=== PATIENT | female | born 1940 | race Caucasian/White ===

== ENCOUNTER 2020-04-14 10:23 | Inpatient (IN) | payer MEDICARE, MEDICAID, SELFPAY ==
[2020-04-14] VITALS (31 sets, daily range): BP systolic 107–231; BP diastolic 54–103; PULSE 59–102; RESP 14–22; TEMP 36.2–36.9; O2SAT 91–100; BMI 18.5
--- NOTE | 2020-04-14 11:03 | XR_ITS ---
WS: [id number] PORTABLE CHEST HISTORY: dyspnea/cough COMPARISON: 11/09/2017 Prior median sternotomy and CABG. Chronic emphysematous changes. Mild interstitial thickening is similar to prior studies. No pneumonia . No pleural effusion or pneumothorax. Cardiac size: Mildly enlarged cardiac silhouette. Mediastinum/Aorta: Mild atherosclerosis aorta. Osteopenia and degenerative changes in the lumbar and thoracic spines. XR/XR chest 1V portable [id number] IMPRESSION: Chronic emphysematous changes with no pneumonia. Prior CABG.
--- NOTE | 2020-04-14 11:04 | CT_ITS ---
WS: [id number] CT ABDOMEN AND PELVIS WITH CONTRAST HISTORY: Abdominal pain. TECHNIQUE: Imaging performed of the abdomen and pelvis with IV contrast. Single phase imaging of the abdomen. Coronal and sagittal reformats are submitted. All CT scans at [facility] use at least one of these dose optimization techniques: automated exposure control; mA and/or kV adjustment per patient size (includes targeted exams where dose is matched to clinical indication); or iterativ e reconstruction. IV CONTRAST: Omnipaque 300; 95 mL IV. Oral contrast: No DLP: 195.52 mGy.cm COMPARISON: None available. Lower thorax: Mild interstitial thickening at the lung bases. Benign granuloma LEFT lung base. Mild e nlargement of the LEFT heart chambers. No hiatal hernia. Liver/biliary system: Normal size with no intrahepatic dilatation. Gallbladder: Normal. No gallstones or wall thickening. No pericholecystic fluid. Pancreas: Marked atrophy of the pancreas. No bile duct dilatation. Spleen: Normal. Adrenal glands: Normal. Right kidney: Moderate atrophy of the RIGHT kidney. Cortical thinning with numerous cysts. There is e xtensive cortical thinning and scarring. The largest cyst maximum diameter of 8.1 cm has peripheral c alcification. No solid enhancing component. Left kidney: Cortical atrophy and scarring especially within the lower pole. No obstruction. Aorta: Extensive atherosclerosis aorta. Patient is status grafting of the abdominal aorta. There is h eavy calcification in the distal graft extending into the iliac arteries. No obstruction of the aorta . Lymphadenopathy: None. Free fluid: None. GI tract: There is extensive fecal retention and constipation. No obstructive pattern is identified. Abdominal wall: Unremarkable abdominal wall. No hernia. Pelvis: Moderately distended urinary bladder. No free fluid in the pelvis. No adenopathy is appreciat ed. Bones: Marked osteopenia. CT/CT abdomen pelvis w con* [id number] IMPRESSION: 1. Severe constipation without obstruction. 2. RIGHT renal cysts with severe cortical thinning and moderate atrophy. 3. Prior abdominal aorta bypass grafting. Bypass graft is intact but there is heavy atherosclerotic plaque. No ischemic changes noted in the GI tract.
--- NOTE | 2020-04-14 11:10 | PC.NURSE ---
Pt requested a bed bustos to void. Pt cleaned with clean catch wipes prior to voiding. Pt placed on bed bustos
[2020-04-14 11:13] LABS: Basophils # 0.1 10^3/uL (0.0-0.1); Basophils % 1.1 %; Eosinophils # 0.2 10^3/uL (0.0-0.8); Eosinophils % 1.7 %; Hematocrit 46.5 % (37.0-47.0); Lymphocytes # 1.1 10^3/uL (0.8-4.8); Lymphocytes % 12.2 %; Mean Corpuscular HGB Conc 32.3 g/dL (30.0-36.0); Mean Corpuscular Hemoglobin 29.6 pg (28.0-34.0); Mean Corpuscular Volume 91.7 fL (81-99); Mean Platelet Volume 9.7 fL (7.4-10.4); Monocytes # 0.8 10^3/uL (0.2-0.9); Monocytes % 8.8 %; Neutrophils # 6.83 10^3/uL (1.8-7.7); Neutrophils % 75.9 %; Nucleated Red Blood Cells % 0 %; Platelet Count 252 10^3/cmm (130-400); Red Blood Count 5.07 10^6/uL (4.1-5.3); Red Cell Distribution Width 13.2 % (12.1-15.1)
[2020-04-14] MEDS: morphine 4 mg/mL SDV 1 mL IVP (11:16)
[2020-04-14] MEDS: ondansetron 2 mg/ML SDV 2 mL 4 MG IVP ×2 (11:16→19:08)
[2020-04-14 11:22] LABS: Alanine Aminotransferase 16 U/L (0-33); Albumin Level 4.6 g/dL (3.5-5.2); Alkaline Phosphatase 57 IU/L (35-105); Anion Gap 16.7 (5-19); Aspartate Amino Transferase 26 U/L (0-32); Blood Urea Nitrogen 18 mg/dL (8-23); Calcium 9.4 mg/dL (8.5-10.5); Carbon Dioxide 27 mmol/L (22-29); Chloride 98 mmol/L (98-107); Glucose 159 mg/dL (65-115); Lipase 37 U/L (13-60); Osmolality Calculated 291 mOsm/kg (285-295); Potassium 3.7 mmol/L (3.5-5.1); Sodium 138 mmol/L (136-145); Total Bilirubin 0.6 mg/dL (0.15-1.2); Total Protein 7.6 g/dL (6.6-8.7)
--- NOTE | 2020-04-14 11:22 | PC.NURSE ---
After pain medication administration, pt saturations dropped to 88% on room air. Pt placed on 2LNC for support.
--- NOTE | 2020-04-14 11:33 | ECG_ITS ---
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1940 Requested By: Justo Hurtado Order Number: [id number] Reading MD: SHARLENE RICARDO Measurements Intervals [place] Rate: 76 P: PA: QRS: -46 QRSD: 145 T: 170 QT: 406 QTc: 457 Interpretive Statements Sinus rhythm with PACs LEFT AXIS DEVIATION [QRS AXIS < -30] LEFT BUNDLE BRANCH BLOCK [120+ ms QRS DURATION, 80+ ms Q/S IN V1/V2, 85+ ms R IN I/aVL/V5/V6] Compared to ECG 11/09/2017 18:29:57 Left bundle-branch block now present T-wave abnormality no longer present Possible ischemia no longer present Electronically Signed On 04-15-2020 15:23:40 BANJO REPAIRER by SHARLENE RICARDO [id number]
--- NOTE | 2020-04-14 11:33 | PC.NURSE ---
XR performed at bedside.
--- NOTE | 2020-04-14 11:44 | ED_ITS ---
HPI - Chest Pain General: Chief Complaint: Chest Pain Stated Complaint: ABDOMINAL PAIN / CHEST PAIN Time Seen by Provider: 04/14/20 10:25 History of Present Illness: HPI narrative: 79-year-old female presents emergency room complaining of abdominal pain epigastric radiating up into the chest at times it began this morning with dizziness. She has had some bilious- like vomiting but no blood or coffee-ground emesis. She denies fever sweats or chills. She denies any diarrhea she denies any dysuria urgency or frequency MD complaint: other (Abdominal pain) Pertinent past history: coronary artery disease Onset (ago): hour(s) Timing of current episode: constant Prior episodes: Yes Onset: during rest Pain location: epigastric Pain radiation: other (Chest) Severity: severe Quality: tightness and sharp Relieving factors: nothing Exacerbating factors: nothing Associated symptoms: Reports nausea and vomiting; Deny abdominal pain, diaphoresis, dyspnea, fever(s), leg edema, palpitations, sense of impending doom or syncope Treatment prior to arrival: none Review of Systems Const: Denies: fever(s) or diaphoresis ENMT: Denies: throat pain, ear or mastoid pain, nasal discharge or nasal congestion Card: Denies: palpitations or syncope Resp: Denies: dyspnea GI: Reports: nausea and vomiting; Denies: abdominal pain : Denies: flank pain, difficulty voiding, dysuria, urinary frequency or urinary urgency Skin/Breast: Denies: rash or pruritus [facility] ED PFSH: Medical History Diabetes mellitus Hypertension Hypothyroidism Surgical History History of aortic valvuloplasty History of appendectomy History of coronary artery bypass graft x 2 History of hysterectomy Physical Exam Const: COMMON NORMALS: no acute distress GENERAL APPEARANCE: cooperative and comfortable ORIENTATION/CONSCIOUSNESS: Yes awake, Yes oriented to person, Yes oriented to place and Yes oriented to time HENMT: COMMON NORMALS: normocephalic, atraumatic and hearing grossly normal bilaterally HEAD & SCALP: normocephalic and atraumatic Neck/C-Spine: COMMON NORMALS: no JVD Resp: COMMON NORMALS: normal respiratory effort, No retractions, No use of accessory muscles and clear to auscultation bilaterally AUSCULTATION: clear to auscultation bilaterally Cardio: COMMON NORMALS: no JVD, regular rate, regular rhythm and No murmurs present (Cardio) RATE: regular rate RHYTHM: regular rhythm GI: COMMON NORMALS: Soft to palpation and No hepatosplenomegaly present AUSCULTATION: Yes normoactive bowel sounds PALPATION: Yes Soft to palpation, Yes Tenderness to palpation present (GI) (Epigastrium), No Guarding due to palpation present (GI) and Yes No hepatosplenomegaly present Extremity: COMMON NORMALS: normal to inspection, capillary refill normal, no clubbing, cyanosis or edema, no calf tenderness and no pedal edema Neuro: SENSORIUM/ORIENTATION: Yes oriented to person, Yes oriented to place and Yes oriented to time Skin: COMMON NORMALS: no rashes or lesions noted GENERAL SKIN EXAM: no rashes or lesions noted Course Vital Signs: Vital signs: Vital Signs Temperature 97.5 F L 04/14/20 10:34 Pulse Rate 62 04/14/20 15:05 Respiratory Rate 18 04/14/20 15:05 Blood Pressure 176/61 04/14/20 15:05 Pulse Oximetry 95 04/14/20 15:05 MDM - Chest Pain MDM Narrative: Medical decision making narrative: Patient was about to be discharged her troponin second troponin came back very late and it is has a positive delta of 7. She still has reproducible pain in the epigastrium. She has a [place] bundle branch block which is new compared to a little over 2 years ago[address] Lovett he has a low level suspicion and wants us to do an echo will admit for the 6-hour troponin and further evaluation. She has been given Rocephin for her bladder infection she probably would also benefit from laxatives for her constipation. Lab Data: Labs: Lab Results 04/14/20 04/14/20 04/14/20 Range/Units 10:45 10:45 10:45 WBC 9.0 (4.0-10.0) 10^3/ uL RBC 5.07 (4.1-5.3) 10^6/u L Hgb 15.0 (11.5-15.3) g/dL Hct 46.5 (37.0-47.0) % MCV 91.7 (81-99) fL MCH 29.6 (28.0-34.0) pg MCHC 32.3 (30.0-36.0) g/dL RDW 13.2 (12.1-15.1) % Plt Count 252 (130-400) 10^3/c mm MPV 9.7 (7.4-10.4) fL Neut % (Auto) 75.9 % Lymph % (Auto) 12.2 % [place] % (Auto) 8.8 % Eos % (Auto) 1.7 % Baso % (Auto) 1.1 % Neut # (Auto) 6.83 (1.8-7.7) 10^3/u L Lymph # (Auto) 1.1 (0.8-4.8) 10^3/u L [place] # (Auto) 0.8 (0.2-0.9) 10^3/u L Eos # (Auto) 0.2 (0.0-0.8) 10^3/u L Baso # (Auto) 0.1 (0.0-0.1) 10^3/u L Nucleated RBC % (a uto) 0 % Nucleated RBCs # 0.0 /100WBC Sodium 138 (136-145) mmol/L Potassium 3.7 (3.5-5.1) mmol/L Chloride 98 (98-107) mmol/L Carbon Dioxide 27 (22-29) mmol/L Anion Gap 16.7 (5-19) BUN 18 (8-23) mg/dL Creatinine 1.0 H (0.5-0.9) mg/dL GFR Calculation Not Reportable Glucose 159 H (65-115) mg/dL Calculated Osmolal ity 291 (285-295) mOsm/k g Calcium 9.4 (8.5-10.5) mg/dL Total Bilirubin 0.6 (0.15-1.2) mg/dL AST 26 (0-32) U/L ALT 16 (0-33) U/L Alkaline Phosphata se 57 (35-105) IU/L Troponin T Baselin e 20 H (0-10) ng/L Troponin T 120 Min bibiana (0-10) ng/L Delta Troponin T (0-10) ABS# Total Protein 7.6 (6.6-8.7) g/dL Albumin 4.6 (3.5-5.2) g/dL Globulin 3.0 (1.3-4.6) g/dL Lipase 37 (13-60) U/L Urine Color (Yellow) Urine Appearance (CLEAR) Urine pH (5-7) Ur Specific Gravit y (1.005-1.030) Urine Protein (Negative) Urine Glucose (UA) (Normal) Urine Ketones (Negative) Urine Blood (Negative) Urine Nitrate (Negative) Urine Bilirubin (Negative) Urine Urobilinogen (Negative) mg/dL Ur Leukocyte Samia ase (Negative) Urine RBC (0-2) /hpf Urine WBC (0-5) /hpf Ur Squamous Epith Cells (0-5) /hpf Amorphous Sediment Urine Bacteria (NONE) /hpf 04/14/20 04/14/20 Range/Units 11:20 14:07 WBC (4.0-10.0) 10^3/ uL RBC (4.1-5.3) 10^6/u L Hgb (11.5-15.3) g/dL Hct (37.0-47.0) % MCV (81-99) fL MCH (28.0-34.0) pg MCHC (30.0-36.0) g/dL RDW (12.1-15.1) % Plt Count (130-400) 10^3/c mm MPV (7.4-10.4) fL Neut % (Auto) % Lymph % (Auto) % [place] % (Auto) % Eos % (Auto) % Baso % (Auto) % Neut # (Auto) (1.8-7.7) 10^3/u L Lymph # (Auto) (0.8-4.8) 10^3/u L [place] # (Auto) (0.2-0.9) 10^3/u L Eos # (Auto) (0.0-0.8) 10^3/u L Baso # (Auto) (0.0-0.1) 10^3/u L Nucleated RBC % (a uto) % Nucleated RBCs # /100WBC Sodium (136-145) mmol/L Potassium (3.5-5.1) mmol/L Chloride (98-107) mmol/L Carbon Dioxide (22-29) mmol/L Anion Gap (5-19) BUN (8-23) mg/dL Creatinine (0.5-0.9) mg/dL GFR Calculation Glucose (65-115) mg/dL Calculated Osmolal ity (285-295) mOsm/k g Calcium (8.5-10.5) mg/dL Total Bilirubin (0.15-1.2) mg/dL AST (0-32) U/L ALT (0-33) U/L Alkaline Phosphata se (35-105) IU/L Troponin T Baselin e (0-10) ng/L Troponin T 120 Min bibiana 27.37 H (0-10) ng/L Delta Troponin T 7.37 (0-10) ABS# Total Protein (6.6-8.7) g/dL Albumin (3.5-5.2) g/dL Globulin (1.3-4.6) g/dL Lipase (13-60) U/L Urine Color Yellow (Yellow) Urine Appearance Cloudy (CLEAR) Urine pH 7 (5-7) Ur Specific Gravit y 1.010 (1.005-1.030) Urine Protein Trace (Negative) Urine Glucose (UA) Norm (Normal) Urine Ketones 1+ H (Negative) Urine Blood Neg (Negative) Urine Nitrate Negative (Negative) Urine Bilirubin Neg (Negative) Urine Urobilinogen Neg (Negative) mg/dL Ur Leukocyte Samia ase Negative (Negative) Urine RBC None (0-2) /hpf Urine WBC 15-25 H (0-5) /hpf Ur Squamous Epith Cells 0-4 H (0-5) /hpf Amorphous Sediment Not Reportable Urine Bacteria 4+ H (NONE) /hpf Discharge Plan Discharge Patient Disposition: Placed in Observation Clinical Impression: Elevated troponin, Constipation, Cystitis, Diabetes mellitus, Hypertension, Hypothyroidism Coding Level of Care Code ED Installer for Chg Fwd Exam Comprehensive
--- NOTE | 2020-04-14 12:08 | PC.NURSE ---
Report given to MARY Hanna
[2020-04-14 12:24] LABS: Add Urine Microscopic? YES; Bilirubin Urine Neg (Negative); Blood Urine Neg (Negative); Glucose Urine UA Norm (Normal); Ketones Urine 1+ (Negative); Leukocyte Esterase Urine Negative (Negative); Nitrate Urine Negative (Negative); Protein Urine Trace (Negative); Urine Appearance Cloudy (CLEAR); Urine Color Yellow (Yellow); Urobilinogen Urine Neg (Negative); pH Urine 7 (5-7)
[2020-04-14 12:25] LABS: Squamous Epithelial Cell Urine 0-4 /hpf (0-5); WBC Urine 15-25 /hpf (0-5)
[2020-04-14 12:26] LABS: Add Urine Culture? Yes; Bacteria Urine 4+ /hpf
[2020-04-14] MEDS: iodixanol 320 mg/mL 100mL Btl IV (12:43)
[2020-04-14 12:56] LABS: Troponin(5th) Baseline 20 ng/L (0-10)
--- NOTE | 2020-04-14 13:33 | ECG_ITS ---
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1940 Requested By: Justo Hurtado Order Number: [id number] Reading MD: SHARLENE RICARDO Measurements Intervals [place] Rate: 65 P: 63 MI: 226 QRS: -16 QRSD: 146 T: 143 QT: 483 QTc: 503 Interpretive Statements SINUS RHYTHM WITH FIRST DEGREE AV BLOCK WITH OCCASIONAL SUPRAVENTRICULAR PREMATURE COMPLEXES LEFT BUNDLE BRANCH BLOCK [120+ ms QRS DURATION, 80+ ms Q/S IN V1/V2, 85+ ms R IN I/aVL/V5/V6] Compared to ECG 04/14/2020 10:30:11 First degree AV block now present Atrial fibrillation no longer present Left-axis deviation no longer present Electronically Signed On 04-15-2020 15:31:41 METAL MOLDER by SHARLENE RICARDO [id number]
[2020-04-14] MEDS: cefTRIAXone 1,000 mg SDV 1000 MG IM (13:47)
[2020-04-14] MEDS: hyDRALAzine 20 mg/mL INJ 1 mL 10 MG IVP (13:47)
[2020-04-14 14:33] LABS: Troponin 5 2HR 27.37 ng/L (0-10); Troponin 5 2HR Delta 7.37 ABS# (0-10)
[2020-04-14] MEDS: morphine 4 mg/mL SDV 1 mL 2 MG IVP ×2 (15:24→17:36)
[2020-04-14] MEDS: nitroglycerin 1 gm/inch oint Pkt 1 INCH TOPICAL (15:26)
--- NOTE | 2020-04-14 16:23 | PM.HP ---
Providers/Chief Complaint Admitting Physician: Reina Yi MD Primary Care Provider: Dr. Hines Chief Complaint: ABDOMINAL PAIN / CHEST PAIN History of Present Illness Shanda Mackey is a 79 year old female who presented to the emergency room not feeling well for several days. She was complaining of pain in her abdomen. It is in the upper part of the abdomen and epigastric region. She is not really able to describe it but the pain is severe. She reports a bowel movement yesterday states that it was not hard that she has been having her normal bowel movement pattern. In addition to the upper stomach pain she complains of chest pain. Pain she describes as a burning that is primarily on the right side. The chest pain and the abdominal pain are both worse with exertion and get better with rest in her recliner. Mrs. Mackey has a history of coronary artery disease with 2 prior bypass surgeries. Last time that she had invasive evaluation they were unable to do much due to access. She has been told that she is not a candidate for invasive evaluation or further surgical repair and should be medically managed from a cardiac standpoint. EKG appeared to show new left bundle branch block. Troponin was elevated patient has not had much oral intake the last day or so. Does not relate any association of oral intake to her pain. She has had some relief with nitroglycerin. Pain is also worse when her blood pressure is higher so she has had a bit of relief with clonidine. During my evaluation she is moaning frequently. CT of the abdomen and pelvis done in the emergency room Review of Systems Const: Reports: change in appetite; Denies: fever(s) or chills ENMT: Reports: dry mouth; Denies: throat pain, odynophagia or nasal congestion Card: Reports: chest pain, palpitations and dyspnea on exertion; Denies: edema Resp: Reports: dyspnea; Denies: productive cough or non-productive cough GI: Reports: abdominal pain and nausea; Denies: vomiting, diarrhea or constipation : Reports: dribbling; Denies: difficulty voiding or urinary frequency Musc: Reports: back pain and extremity pain Skin/Breast: Denies: rash or pruritus Neuro: Reports: dizziness; Denies: headache(s), numbness in extremities or weakness in extremities Psych: Reports: anxiety, paranoia and memory loss; Denies: depression Jason/Lymph: Denies: easy bruising or easy bleeding Medications/Allergies Home Medications Medication Instructions Recorded Confirmed Last Taken Type aspirin [Aspir-81] 81 mg PO DAILY 04/14/20 04/14/20 04/14/20 History clonidine HCl 0.2 mg PO BID 04/14/20 04/14/20 Unknown History hydrochlorothiazide 12.5 mg PO DAILY 04/14/20 04/14/20 Unknown History levothyroxine 125 mcg PO DAILY 04/14/20 04/14/20 Unknown History memantine 5 mg PO DAILY 04/14/20 04/14/20 Unknown History nitroglycerin 0.2 mg SUBLINGUAL Q5M PRN 04/14/20 04/14/20 04/14/20 History sitagliptin [Januvia] 50 mg PO DAILY 04/14/20 04/14/20 Unknown History Allergies Allergy/AdvReac Type Severity Reaction Status Date / Time acetaminophen [From Percocet] Allergy Unknown Verified 04/14/20 14:00 adalimumab [From Humira] Allergy Unknown Verified 04/14/20 14:00 amlodipine [From Norvasc] Allergy Unknown Verified 04/14/20 14:00 amoxicillin Allergy Unknown Verified 04/14/20 14:00 bupropion [From Wellbutrin] Allergy Unknown Verified 04/14/20 14:00 carvedilol [From Coreg] Allergy Unknown Verified 04/14/20 14:51 ciprofloxacin [From Cipro] Allergy Unknown Verified 04/14/20 14:00 codeine Allergy Unknown Verified 04/14/20 14:51 diltiazem Allergy Unknown Verified 04/14/20 14:00 diphenhydramine Allergy Unknown Verified 04/14/20 14:00 [From Benadryl] enalaprilat [From Vasotec] Allergy Unknown Verified 04/14/20 14:00 etanercept [From Enbrel] Allergy Unknown Verified 04/14/20 14:00 hydrocodone Allergy Unknown Verified 04/14/20 14:00 ibuprofen Allergy Unknown Verified 04/14/20 14:00 isosorbide [From Imdur] Allergy Unknown Verified 04/14/20 14:00 lovastatin Allergy Unknown Verified 04/14/20 14:00 meperidine [From Demerol] Allergy Unknown Verified 04/14/20 14:51 metoprolol [From Toprol XL] Allergy Unknown Verified 04/14/20 14:00 mibefradil [From Posicor] Allergy Unknown Verified 04/14/20 14:00 niacin Allergy ADR-Headach Verified 04/14/20 14:00 e nitrous oxide Allergy Unknown Verified 04/14/20 14:00 oxycodone [From Percocet] Allergy Unknown Verified 04/14/20 14:00 prednisone Allergy Unknown Verified 04/14/20 14:00 propoxyphene [From Darvon] Allergy Unknown Verified 04/14/20 14:51 sumatriptan [From Imitrex] Allergy Unknown Verified 04/14/20 14:00 tramadol [From Ultram] Allergy Unknown Verified 04/14/20 14:00 trospium Allergy ADR-Hyperte Verified 04/14/20 14:00 nsion zolmitriptan [From Zomig] Allergy Unknown Verified 04/14/20 14:00 ERYTHROMYCIN Allergy Unknown Uncoded 04/14/20 14:00 TROSPIUM CHLORIDE Allergy Unknown Uncoded 04/14/20 14:00 PFSH Acute PFSH: Medical History (Updated 04/15/20 @ 00:06 by Reina Yi MD) Alzheimer disease CAD (coronary artery disease) CHF (congestive heart failure) Diabetes mellitus Hyperlipidemia Hypertension Hypothyroidism Schizophrenia Surgical History (Updated 04/15/20 @ 00:04 by Reina Yi MD) History of aortic valvuloplasty History of appendectomy History of coronary artery bypass graft x 2 History of hysterectomy Status post aortic bifurcation bypass graft Family History Sister CAD (coronary artery disease) Mother CAD (coronary artery disease) Social History Smoking and tobacco status: former smoker Alcohol intake: never Substance/Drug Use: never Household members: children Vitals/I&O/Wt Last Vital Signs Temp 97.5 F L 04/14/20 10:34 Pulse 62 04/14/20 15:05 Resp 18 04/14/20 15:05 BP 176/61 04/14/20 15:05 Pulse Ox 95 04/14/20 15:05 Weight last 48 hrs Weight 44.452 kg Physical Exam Const: OTHER: Alert, oriented to person and place but not able to provide detailed answers to questions, thin build, looks uncomfortable HENMT: OTHER: Bitemporal wasting, dry mucous membranes Eye: OTHER: Extra ocular movements are intact Neck/C-Spine: OTHER: Supple Chest: OTHER: Prior sternal incision noted Resp: OTHER: Clear to auscultation bilaterally, no rales, rhonchi or wheezes Cardio: OTHER: Regular rate and rhythm, no JVD, apical impulse slightly left of midline, 2+ radial pulses, 1+ pedal pulses GI: OTHER: Abdomen soft, tender in the epigastric region primarily, positive bowel sounds, mild tenderness in the bladder region : OTHER: Normal external genitalia Extremity: NARRATIVE EXTREMITY EXAM: No pitting edema, prior vein graft scars noted Neuro: OTHER: Speech clear, handgrip equal, moves both legs, face symmetric Psych: OTHER: Quite anxious and uncomfortable, moans a lot during exam but does pause to answer questions Skin: OTHER: Dry skin with decreased turgor Data : 04/14/20 10:45 04/14/20 10:45 A&P Assessment and plan (1) Abdominal pain: Status: Acute Qualifiers: Abdominal location: epigastric Qualified Code(s): R10.13 - Epigastric pain (2) Chest pain: Status: Acute Qualifiers: Chest pain type: precordial pain Qualified Code(s): R07.2 - Precordial pain (3) Elevated troponin: Status: Acute (4) Constipation: Status: Acute Qualifiers: Constipation type: unspecified constipation type Qualified Code(s): K59.00 - Constipation, unspecified (5) CAD (coronary artery disease): Status: Chronic Qualifiers: Coronary Disease-Associated Artery/Lesion type: bypass graft Associated angina: without angina [place] vs. transplanted heart: nikolai heart Qualified Code(s): I25.810 - Atherosclerosis of coronary artery bypass graft(s) without angina pectoris (6) CHF (congestive heart failure): Status: Chronic Qualifiers: Heart failure type: unspecified Heart failure chronicity: chronic Qualified Code(s): I50.9 - Heart failure, unspecified (7) Hypertension: Status: Chronic Qualifiers: Hypertension type: essential hypertension Qualified Code(s): I10 - Essential (primary) hypertension (8) Hypothyroidism: Status: Chronic Qualifiers: Hypothyroidism type: acquired Qualified Code(s): E03.9 - Hypothyroidism, unspecified (9) Diabetes mellitus: Status: Chronic Qualifiers: Diabetes mellitus type: type 2 Diabetes mellitus mcfp insulin use: without mcfp use Diabetes mellitus complication status: with circulatory complication Diabetes mellitus complication detail: with other circulatory complications Qualified Code(s): E11.59 - Type 2 diabetes mellitus with other circulatory complications (10) Hyperlipidemia: Status: Chronic Qualifiers: Hyperlipidemia type: unspecified Qualified Code(s): E78.5 - Hyperlipidemia, unspecified (11) Alzheimer disease: Status: Chronic Qualifiers: Alzheimer's disease onset: unspecified onset Dementia behavioral disturbance: without behavioral disturbance Qualified Code(s): G30.9 - Alzheimer's disease, unspecified; F02.80 - Dementia in other diseases classified elsewhere without behavioral disturbance (12) Schizophrenia: Status: Chronic Qualifiers: Schizophrenia type: unspecified Qualified Code(s): F20.9 - Schizophrenia, unspecified Additional A&P Information Abnormal urinalysis without reported urinary symptoms, likely contamination with epithelial cells noted, status post 1 dose of Rocephin in the emergency room Observation admission for now Continue serial cardiac enzymes According to the daughter for medical management only We will continue aspirin, allergy to statin, allergy to beta-blockade Continue clonidine and as needed hydralazine for blood pressure, options are extremely limited by reported allergy list Currently hold HCTZ secondary to degree of constipation Low volume IV fluids tonight Check TSH, continue levothyroxine Continue home Namenda Hold Januvia presently, sliding scale insulin if needed Lipase was checked and was normal Pain control Laxative therapy PPI Carafate Supportive care otherwise Patient does not wish to have chest compressions but otherwise would want resuscitative efforts at least in the short-term Attestations Medical Necessity Statement*: Currently anticipated stay less than 2 midnights in a patient presenting with abdominal pain and chest pain that has been difficult to control. She has a history of coronary artery disease for medical management only. Has not been able to get relief of her symptoms thus far. Plans are as indicated. 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 transplanted heart: nikolai heart CHF (congestive heart failure) I50.9 Heart failure type: unspecified Heart failure chronicity: chronic Hypertension I10 Hypertension type: essential hypertension Hypothyroidism E03.9 Hypothyroidism type: acquired Diabetes mellitus E11.59 Diabetes mellitus type: type 2 Diabetes mellitus continuous churn buttermaker insulin use: without continuous churn buttermaker use Diabetes mellitus complication status: with circulatory complication Diabetes mellitus complication detail: with other circulatory complications Hyperlipidemia E78.5 Hyperlipidemia type: unspecified Alzheimer disease G30.9; F02.80 Alzheimer's disease onset: unspecified onset Dementia behavioral disturbance: without behavioral disturbance Schizophrenia F20.9 Schizophrenia type: unspecified
--- NOTE | 2020-04-14 16:28 | PC.NURSE ---
report given to kamala leal
--- NOTE | 2020-04-14 17:25 | PC.NURSE ---
Patient arrived to unit at 1710 with complaints of epigastric area pain and nausea.
[2020-04-14] MEDS: enoxaparin 40 mg/0.4 mL Syringe SUBCUT (17:31)
[2020-04-14] MEDS: cloNIDine 0.1 mg Tablet PO (17:31)
--- NOTE | 2020-04-14 17:33 | ECG_ITS ---
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[id number] Requested By: Justo Hurtado Order Number: [id number] Reading MD: SHARLENE RICARDO Measurements Intervals [place] Rate: 76 P: RI: QRS: -56 QRSD: 154 T: 136 QT: 451 QTc: 509 Interpretive Statements ATRIAL FIBRILLATION WITH ABERRANT CONDUCTION OR VENTRICULAR PREMATURE COMPLEXES MARKED LEFT AXIS DEVIATION [QRS AXIS < -30] LEFT BUNDLE BRANCH BLOCK [120+ ms QRS DURATION, 80+ ms Q/S IN V1/V2, 85+ ms R IN I/aVL/V5/V6] Compared to ECG 04/14/2020 13:59:24 Ventricular premature complex(es) now present Aberrant conduction of supraventricular beat(s) now present Left-axis deviation now present Sinus rhythm no longer present First degree AV block no longer present Electronically Signed On 04-15-2020 15:30:58 INFANTRY SENIOR SERGEANT by SHARLENE RICARDO [id number]
[2020-04-14] MEDS: pantoprazole 40 mg SDV IVP (17:34)
[2020-04-14] MEDS: docusate sodium 100 mg Capsule PO (18:02)
[2020-04-14] MEDS: sennosides 8.6 mg Tablet 17.2 MG PO (18:02)
[2020-04-14 18:19] LABS: Troponin 5 6HR 57.81 ng/L (0-10)
[2020-04-14 18:22] LABS: Troponin 5 6HR Delta 37.81 ng/L (0-12)
--- NOTE | 2020-04-14 19:36 | PC.NURSE ---
Received report from MARY Royal. Patient resting in bed c/o nausea at this time. Medication administered as ordered for her nausea. Assessment completed as documented. Instructed patient on use of morphine and zofran. Patient verbalized understanding however will need reinforcement due to history of Alzheimer's.
--- NOTE | 2020-04-14 20:46 | PM.CONSULT ---
Providers/Reason For Consult Consulting Physican/Specialty*: Cardiology Reason for Consult*: Abdominal pain, abnormal EKG Attending Physician: Reina Yi MD History of Present Illness History of Present Illness Shanda Mackey is a 79 year old female past medical history significant for possible CABG, aortic surgery, please note that patient is not a good historian and I do not have documentation. Patient presented with abdominal pain which is very tender to touch. Cardiac markers were slightly elevated from the normal without significant increase in delta troponin. Interim EKG showed left bundle branch block in the absence of troponin bump appear to be old. I have been asked by Dr. Bedoya to assist in her care. When I spoke to the patient he denies any chest pain at rest or upon exertion. She is not sure whether she had bypass or any valvular problem for which her chest was open. We will ask for records for that. She gives me history of abdominal pain going on for past few weeks worse occasionally with food but not to the extent that it is very tender to touch. Review of Systems Const: Denies: fever(s) or diaphoresis ENMT: Denies: throat pain, ear or mastoid pain, nasal discharge or nasal congestion Card: Denies: palpitations or syncope Resp: Denies: dyspnea GI: Reports: nausea and vomiting; Denies: abdominal pain : Denies: flank pain, difficulty voiding, dysuria, urinary frequency or urinary urgency Skin/Breast: Denies: rash or pruritus Meds/Allergies Home Medications and Allergies Home Medications Medication Instructions Recorded Confirmed Last Taken Type aspirin [Aspir-81] 81 mg PO DAILY 04/14/20 04/14/20 04/14/20 History clonidine HCl 0.2 mg PO BID 04/14/20 04/14/20 Unknown History hydrochlorothiazide 12.5 mg PO DAILY 04/14/20 04/14/20 Unknown History levothyroxine 125 mcg PO DAILY 04/14/20 04/14/20 Unknown History memantine 5 mg PO DAILY 04/14/20 04/14/20 Unknown History nitroglycerin 0.2 mg SUBLINGUAL Q5M PRN 04/14/20 04/14/20 04/14/20 History sitagliptin [Januvia] 50 mg PO DAILY 04/14/20 04/14/20 Unknown History Allergies Allergy/AdvReac Type Severity Reaction Status Date / Time acetaminophen [From Percocet] Allergy Unknown Verified 04/14/20 14:00 adalimumab [From Humira] Allergy Unknown Verified 04/14/20 14:00 amlodipine [From Norvasc] Allergy Unknown Verified 04/14/20 14:00 amoxicillin Allergy Unknown Verified 04/14/20 14:00 bupropion [From Wellbutrin] Allergy Unknown Verified 04/14/20 14:00 carvedilol [From Coreg] Allergy Unknown Verified 04/14/20 14:51 ciprofloxacin [From Cipro] Allergy Unknown Verified 04/14/20 14:00 codeine Allergy Unknown Verified 04/14/20 14:51 diltiazem Allergy Unknown Verified 04/14/20 14:00 diphenhydramine Allergy Unknown Verified 04/14/20 14:00 [From Benadryl] enalaprilat [From Vasotec] Allergy Unknown Verified 04/14/20 14:00 etanercept [From Enbrel] Allergy Unknown Verified 04/14/20 14:00 hydrocodone Allergy Unknown Verified 04/14/20 14:00 ibuprofen Allergy Unknown Verified 04/14/20 14:00 isosorbide [From Imdur] Allergy Unknown Verified 04/14/20 14:00 lovastatin Allergy Unknown Verified 04/14/20 14:00 meperidine [From Demerol] Allergy Unknown Verified 04/14/20 14:51 metoprolol [From Toprol XL] Allergy Unknown Verified 04/14/20 14:00 mibefradil [From Posicor] Allergy Unknown Verified 04/14/20 14:00 niacin Allergy ADR-Headach Verified 04/14/20 14:00 e nitrous oxide Allergy Unknown Verified 04/14/20 14:00 oxycodone [From Percocet] Allergy Unknown Verified 04/14/20 14:00 prednisone Allergy Unknown Verified 04/14/20 14:00 propoxyphene [From Darvon] Allergy Unknown Verified 04/14/20 14:51 sumatriptan [From Imitrex] Allergy Unknown Verified 04/14/20 14:00 tramadol [From Ultram] Allergy Unknown Verified 04/14/20 14:00 trospium Allergy ADR-Hyperte Verified 04/14/20 14:00 nsion zolmitriptan [From Zomig] Allergy Unknown Verified 04/14/20 14:00 ERYTHROMYCIN Allergy Unknown Uncoded 04/14/20 14:00 TROSPIUM CHLORIDE Allergy Unknown Uncoded 04/14/20 14:00 Current Medications Current Medications Generic Name Dose Route Start Last Admin Trade Name Freq PRN Reason Stop Dose Admin Docusate Sodium 100 mg 04/14/20 18:00 04/14/20 18:02 Docusate Sodium 100 Mg Capsule PO 100 mg BID RENATO Administration Ondansetron HCl 4 mg 04/14/20 16:58 04/14/20 19:08 Ondansetron 2 Mg/Ml Sdv 2 Ml IVP 4 mg Q8H PRN Administration vomiting, or N/V if npo Pantoprazole Sodium 40 mg 04/14/20 17:15 04/14/20 17:34 Pantoprazole 40 Mg Sdv IVP 40 mg Q24H RENATO Administration Senna 17.2 mg 04/14/20 18:00 04/14/20 18:02 Sennosides 8.6 Mg Tablet PO 17.2 mg BID RENATO Administration PFSH Acute PFSH: Medical History (Updated 04/15/20 @ 00:06 by Reina Yi MD) Alzheimer disease CAD (coronary artery disease) CHF (congestive heart failure) Diabetes mellitus Hyperlipidemia Hypertension Hypothyroidism Schizophrenia Surgical History (Updated 04/15/20 @ 00:04 by Reina Yi MD) History of aortic valvuloplasty History of appendectomy History of coronary artery bypass graft x 2 History of hysterectomy Status post aortic bifurcation bypass graft Family History Sister CAD (coronary artery disease) Mother CAD (coronary artery disease) Social History Smoking and tobacco status: former smoker Alcohol intake: never Substance/Drug Use: never Household members: children Vitals/I&O/Wt Last Vital Signs Temp 97.2 F L 04/14/20 17:30 Pulse 95 04/14/20 20:00 Resp 17 04/14/20 20:00 BP 129/83 04/14/20 20:00 Pulse Ox 95 04/14/20 20:00 Weight last 48 hrs Weight 0 oz Weight 98 lb Physical Exam Narrative: EXAM NARRATIVE: GENERAL: Patient is alert, awake and oriented x3. Mild to moderately distressed with abdominal pain NECK: No jugular vein distension. HEENT: No cyanosis. No icterus. No pallor. HEART: Regular S1 and S2. No murmur, rub or gallop. LUNGS: Clear to auscultate bilaterally. ABDOMEN: Soft, tender and nondistended. guarding, no rebound or tenderness. CENTRAL NERVOUS SYSTEM: Grossly nonfocal. A&P Assessment and plan (1) CHF (congestive heart failure): Appeared well compensated. No need of diuretics. Status: Chronic Qualifiers: Heart failure chronicity: chronic Heart failure type: unspecified Qualified Code(s): I50.9 - Heart failure, unspecified (2) CAD (coronary artery disease): Appear to be stable coronary artery disease bueno. Interim change in left bundle branch block could be old in the absence of significant bump of cardiac markers. Recommend echocardiogram to assess LV function. Status: Chronic Qualifiers: Associated angina: without angina Coronary Disease-Associated Artery/Lesion type: bypass graft (3) Hypertension: Well-controlled. Status: Chronic (4) Abdominal pain: Abdominal pain is her main etiology and concern for coming to the hospital. Treat as per medicine Status: Acute (5) Elevated troponin: Appear to be nonspecific at the moment. We will continue to monitor Status: Acute Coding Level of Care Code New Pt Acute Tower Hoist Operator for g Fwd Patient Type New History Expanded Problem Focused Exam Expanded Problem Focused Medical Decision Making Moderate Complexity Diagnoses CHF (congestive heart failure) I50.9 Heart failure chronicity: chronic Heart failure type: unspecified CAD (coronary artery disease) I25.10 Associated angina: without angina Coronary Disease-Associated Artery/Lesion type: bypass graft Hypertension I10 Abdominal pain R10.9 Elevated troponin R77.8
[2020-04-15] VITALS (12 sets, daily range): BP systolic 127–171; BP diastolic 59–84; PULSE 64–136; RESP 12–90; TEMP 36.6–37; O2SAT 92–98
[2020-04-15] MEDS: enoxaparin 40 mg/0.4 mL Syringe SUBCUT ×2 (00:47→20:51)
[2020-04-15] MEDS: sodium chlor 0.9% + KCl 20 mEq 20 MEQ/1,000 ML BAG 75 MEQ IV ×3 (00:47→18:47)
[2020-04-15] MEDS: morphine 4 mg/mL SDV 1 mL 2 MG IVP (01:00)
[2020-04-15] MEDS: calcium carbonate 500 mg Chew Tablet 1000 MG PO (01:00)
--- NOTE | 2020-04-15 01:11 | PC.NURSE ---
Administered medications as ordered. Assisted patient up to BSC with full contact assistance. Patient c/o nausea and mild dizziness along with pain 8/10 to epigastric area. Patient had large void. Provided patient tub for emesis. No emesis produced however patient did have several large belches. Patient did express some relief of nausea after belching. Left tub at bedside for patient use. Provided medication for pain and Tums for upset stomach as ordered. Patient expressed thanks. No other distresses observed.
--- NOTE | 2020-04-15 04:43 | PC.NURSE ---
Patient reports feeling some better this morning. Reports feeling less nauseated and lessoned pain. Patient does continue to c/o mild dizziness. Patient denies other discomforts or needs. No distress observed.
[2020-04-15 04:59] LABS: Basophils % 0.5 %; Eosinophils % 0.2 %; Hematocrit 43.1 % (37.0-47.0); Hemoglobin 13.9 g/dL (11.5-15.3); Lymphocytes # 0.8 10^3/uL (0.8-4.8); Lymphocytes % 10.3 %; Mean Corpuscular HGB Conc 32.3 g/dL (30.0-36.0); Mean Corpuscular Hemoglobin 29.5 pg (28.0-34.0); Mean Corpuscular Volume 91.5 fL (81-99); Monocytes # 0.9 10^3/uL (0.2-0.9); Monocytes % 10.7 %; Neutrophils # 6.35 10^3/uL (1.8-7.7); Neutrophils % 78.1 %; Nucleated Red Blood Cells % 0 %; Platelet Count 237 10^3/cmm (130-400); Red Blood Count 4.71 10^6/uL (4.1-5.3); Red Cell Distribution Width 13.2 % (12.1-15.1); White Blood Count 8.1 10^3/uL (4.0-10.0)
[2020-04-15 05:33] LABS: Alanine Aminotransferase 17 U/L (0-33); Albumin Level 3.9 g/dL (3.5-5.2); Alkaline Phosphatase 46 IU/L (35-105); Anion Gap 18.3 (5-19); Aspartate Amino Transferase 81 U/L (0-32); Blood Urea Nitrogen 16 mg/dL (8-23); Calcium 8.9 mg/dL (8.5-10.5); Carbon Dioxide 27 mmol/L (22-29); Chloride 99 mmol/L (98-107); Creatinine Clr Calc Pharmacy 0; Globulin 2.7 g/dL (1.3-4.6); Glucose 106 mg/dL (65-115); Magnesium 1.9 mg/dL (1.7-2.3); Osmolality Calculated 292 mOsm/kg (285-295); Potassium 4.3 mmol/L (3.5-5.1); Sodium 140 mmol/L (136-145); Thyroid Stimulating Hormone 22.83 uIU/mL (0.27-4.20); Total Bilirubin 0.7 mg/dL (0.15-1.2); Total Protein 6.6 g/dL (6.6-8.7)
[2020-04-15] MEDS: sucralfate 1 gm/10 mL Oral Liq UDC PO ×4 (06:14→20:53)
[2020-04-15 06:45] LABS: Glucose Point of Care 90 mg/dL (70-110)
--- NOTE | 2020-04-15 07:00 | USCV_ITS ---
Key Shanda Age: 79 Gender: F : 1940 Exam Date: 04/15/2020 06:39 Ordering Phys: Justo Weir DO Technologist: Laxmi Craig [place] [facility] [place] POSITIVE DELTA TROPONIN BP: 132 / 84 HR: 56 Rhythm: Sinus Technical Quality: Adequate MEASUREMENTS (Male / Female) Normal Values 2D ECHO LV Diastolic Diameter PLAX 3.8 cm 4.2 - 5.9 / 3.9 - 5.3 cm LV Systolic Diameter PLAX 3.2 cm LV Chamber Size 3.6 cm IVS Diastolic Thickness 0.9 cm 0.6 - 1.0 / 0.6 - 0.9 cm IVS Systolic Thickness 1.4 cm LVPW Diastolic Thickness 1.1 cm 0.6 - 1.0 / 0.6 - 0.9 cm LVPW Systolic Thickness 1.6 cm RV Chamber Size 2.5 cm LVOT Diameter 2.0 cm LV Ejection Fraction 2D Teich 44.7 % LV Ejection Fraction MOD 2C 62.0 % LV Ejection Fraction 2C AL 62.3 % LA Diameter 3.2 cm LA Width 3.0 cm LA Height 4.2 cm RA Width 2.9 cm RA Height 3.8 cm Aorta at Sinotubular Diameter 2.6 cm M-MODE LV Diastolic Diameter MM 4.6 cm 4.2 - 5.9 / 3.9 - 5.3 cm LV Systolic Diameter MM 3.1 cm LV Ejection Fraction MM Teich 59.9 % IVS Diastolic Thickness MM 1.0 cm 0.6 - 1.0 / 0.6 - 0.9 cm IVS Systolic Thickness MM 1.2 cm LVPW Diastolic Thickness MM 0.9 cm 0.6 - 1.0 / 0.6 - 0.9 cm LVPW Systolic Thickness MM 1.5 cm RV Diastolic Diameter MM 0.9 cm Aortic Annulus Diameter 3.0 cm LA Ao Ratio MM 1.0 MV E Point Septal Separation 1.5 cm DOPPLER AV Peak Velocity 132.0 cm/s LVOT Peak Velocity 68.0 cm/s AV Area Cont Eq vti 1.6 cm squared AV Area Cont Eq pk 1.6 cm squared MV Area PHT 3.7 cm squared Mitral E to A Ratio 1.2 MV E' Velocity 39.5 cm/s Mitral E to MV E' Ratio 12.1 Mitral E to LV E' Lateral Ratio 11.9 Mitral E to LV E' Septal Ratio 12.5 TR Peak Velocity 275.6 cm/s TR Peak Gradient 30.4 mmHg TR Mean Velocity 213.5 cm/s TR Mean Gradient 20.3 mmHg TR Velocity Time Integral 99.6 cm TV Peak E Velocity 48.0 cm/s Right Atrial Pressure 3.0 mmHg Pulmonary Artery Systolic Pressu 33.4 mmHg PV Peak Velocity 75.0 cm/s RV Acceleration Time 0.1 s RV Ejection Time 0.4 s RV AcT/ET 0.3 FINDINGS Left Ventricle Moderately inceased left ventricular cavity size. Global left ventricular hypokinesis with regional anterior wall severe hypokinesis. Left ventricular ejection fraction is estimated at 40 %. Moderately decreased left ventricular systolic function. Grade I/IV diastolic dysfunction (abnormal relaxation filling pattern), normal to mildly elevated filling pressures. Right Ventricle The right ventricle is normal in size and function. Right Atrium The right atrium is normal in size. Left Atrium Moderately increased left atrial size. Mitral Valve Structurally normal mitral valve without significant stenosis or prolapse. There is no mitral regurgitation. Mild mitral annular calcification. Aortic Valve Severe aortic valve calcification. Mild aortic valve stenosis, mean gradient 3.7 mmHg, YANY 1.6 cm squared. [id number] aortic valve regurgitation. Tricuspid Valve Moderate tricuspid valve regurgitation. Pulmonic Valve Structurally normal pulmonic valve without significant stenosis. There is no pulmonic regurgitation. Pericardium Normal pericardium without effusion. Aorta Normal ascending aorta dimension. CONCLUSIONS 1-Moderately inceased left ventricular cavity size. Global left ventricular hypokinesis with regional anterior wall severe hypokinesis. Left ventricular ejection fraction is estimated at 40 %. Moderately decreased left ventricular systolic function. Grade I/IV diastolic dysfunction (abnormal relaxation filling pattern), normal to mildly elevated filling pressures. 2-Moderately increased left atrial size. 3-Severe aortic valve calcification. Mild aortic valve stenosis, mean gradient 3.7 mmHg, YANY 1.6 cm squared. [id number] aortic valve regurgitation. 4-Structurally normal mitral valve without significant stenosis or prolapse. There is no mitral regurgitation. Mild mitral annular calcification. 5-There is no pericardial effusion. 6-Pulmonary artery systolic pressure is within normal limits. Vera Wise MD (Electronically Signed) Final Date: 15 April 2020 16:27 S
[2020-04-15] MEDS: ondansetron 4 MG Tablet PO (09:12)
[2020-04-15] MEDS: sennosides 8.6 mg Tablet 17.2 MG PO ×2 (09:13→17:44)
[2020-04-15] MEDS: levothyroxine 125 mcg Tablet PO (09:13)
[2020-04-15] MEDS: docusate sodium 100 mg Capsule PO ×2 (09:13→17:44)
[2020-04-15] MEDS: memantine 5 mg tablet PO (09:14)
[2020-04-15] MEDS: aspirin 81 mg EC Tablet PO (09:14)
[2020-04-15 11:15] LABS: Glucose Point of Care 93 mg/dL (70-110)
--- NOTE | 2020-04-15 15:04 | PM.PN ---
Subjective Subjective: Interval history: Say still has abdominal pain and tender but overall better with no further rise in troponin Vitals/I&O/Wt Last Vital Signs Temp 98.6 F 04/15/20 14:53 Pulse 79 04/15/20 14:53 Resp 90 H 04/15/20 14:53 BP 171/82 04/15/20 14:53 Pulse Ox 94 04/15/20 14:53 04/15/20 04/15/20 04/15/20 06:59 14:59 22:59 Intake Total 1000 / 1000 Balance 1000 / 1000 Weight last 48 hrs Weight 97 lb 3.2 oz Weight 0 oz Weight 98 lb Physical Exam Narrative: EXAM NARRATIVE: GENERAL: Patient is alert, awake and oriented x3. Mildly distressed with abdominal pain NECK: No jugular vein distension. HEENT: No cyanosis. No icterus. No pallor. HEART: Regular S1 and S2. No murmur, rub or gallop. LUNGS: Clear to auscultate bilaterally. ABDOMEN: Soft, tender and nondistended. guarding, no rebound or tenderness. CENTRAL NERVOUS SYSTEM: Grossly nonfocal. Data : 04/15/20 04:35 04/15/20 04:35 Micro: Microbiology 04/14/20 11:20 Urine Culture - Preliminary Urine,Clean Catch Gram Negative Rods A&P Assessment and plan (1) CHF (congestive heart failure): Appeared well compensated. No need of diuretics. Status: Chronic Qualifiers: Heart failure type: unspecified Heart failure chronicity: chronic Qualified Code(s): I50.9 - Heart failure, unspecified (2) CAD (coronary artery disease): Appear to be stable coronary artery disease bueno. Interim change in left bundle branch block could be old in the absence of significant bump of cardiac markers. Awaiting echo results which will be read today Status: Chronic Qualifiers: Coronary Disease-Associated Artery/Lesion type: bypass graft [place] vs. transplanted heart: [place] heart Associated angina: without angina Qualified Code(s): I25.810 - Atherosclerosis of coronary artery bypass graft(s) without angina pectoris (3) Hypertension: Well-controlled. Status: Chronic Qualifiers: Hypertension type: essential hypertension Qualified Code(s): I10 - Essential (primary) hypertension (4) Abdominal pain: Abdominal pain is her main etiology and concern for coming to the hospital. Treat as per medicine Status: Acute Qualifiers: Abdominal location: epigastric Qualified Code(s): R10.13 - Epigastric pain (5) Elevated troponin: Appear to be nonspecific at the moment. We will continue to monitor Status: Acute Attestations Medical Necessity Statement*: Require continuation hospitalization for above defined care. Coding Level of Care Code Established Pt Acute Community Aide for Lázarog Fwd Patient Type Established History Expanded Problem Focused Exam Expanded Problem Focused Medical Decision Making Moderate Complexity Diagnoses CHF (congestive heart failure) I50.9 Heart failure type: unspecified Heart failure chronicity: chronic CAD (coronary artery disease) I25.810 Coronary Disease-Associated Artery/Lesion type: bypass graft [place] vs. transplanted heart: [place] heart Associated angina: without angina Hypertension I10 Hypertension type: essential hypertension Abdominal pain R10.13 Abdominal location: epigastric Elevated troponin R77.8
[2020-04-15 15:50] LABS: Glucose Point of Care 114 mg/dL (70-110)
--- NOTE | 2020-04-15 16:43 | PM.PN ---
Subjective Subjective: Interval history: Patient feels better presently. Not really having much in the way of chest pain. Pain is primarily in the epigastric region. Seem to respond to Tums per nursing staff. Still very uncomfortable. The pressures are quite variable throughout the day. TSH came back elevated at 22. Patient denies noncompliance with medication but I suspect she is not being completely honest about that or just does not recall. Dr. Wise has seen her. Appreciate input. No bowel movement reported Vitals/I&O/Wt Last Vital Signs Temp 98.6 F 04/15/20 14:53 Pulse 79 04/15/20 14:53 Resp 90 H 04/15/20 14:53 BP 171/82 04/15/20 14:53 Pulse Ox 94 04/15/20 14:53 04/15/20 04/15/20 04/15/20 06:59 14:59 22:59 Intake Total 1000 / 1000 Balance 1000 / 1000 Weight last 48 hrs Weight 44.089 kg Weight 0 g Weight 44.452 kg Physical Exam Const: OTHER: Alert, oriented to person and place, smiling today but grimaces very easily with examination of abdomen, thin build HENMT: OTHER: Dry mucous membranes Neck/C-Spine: OTHER: Supple Resp: OTHER: Breath sounds decreased at bases but otherwise clear Cardio: OTHER: Regular rate and rhythm GI: OTHER: Abdomen soft, tender in the epigastric area, some guarding but no rebound, positive bowel sounds, not having lower abdominal tenderness today Extremity: NARRATIVE EXTREMITY EXAM: No pitting edema Neuro: OTHER: Speech clear, face symmetric, muscle wasting noted but moves all extremities Psych: OTHER: Remains anxious but not as bad as she was in the emergency room Data : 04/15/20 04:35 04/15/20 04:35 Micro: Microbiology 04/14/20 11:20 Urine Culture - Preliminary Urine,Clean Catch Gram Negative Rods A&P Assessment and plan (1) Abdominal pain: Status: Acute Qualifiers: Abdominal location: epigastric Qualified Code(s): R10.13 - Epigastric pain (2) Chest pain: Status: Acute Qualifiers: Chest pain type: precordial pain Qualified Code(s): R07.2 - Precordial pain (3) Elevated troponin: Status: Acute (4) Constipation: Status: Acute Qualifiers: Constipation type: unspecified constipation type Qualified Code(s): K59.00 - Constipation, unspecified (5) CAD (coronary artery disease): Status: Chronic Qualifiers: Coronary Disease-Associated Artery/Lesion type: bypass graft [place] vs. transplanted heart: [place] heart Associated angina: without angina Qualified Code(s): I25.810 - Atherosclerosis of coronary artery bypass graft(s) without angina pectoris (6) CHF (congestive heart failure): Status: Chronic Qualifiers: Heart failure type: unspecified Heart failure chronicity: chronic Qualified Code(s): I50.9 - Heart failure, unspecified (7) Hypertension: Status: Chronic Qualifiers: Hypertension type: essential hypertension Qualified Code(s): I10 - Essential (primary) hypertension (8) Hypothyroidism: Status: Chronic Qualifiers: Hypothyroidism type: acquired Qualified Code(s): E03.9 - Hypothyroidism, unspecified (9) Diabetes mellitus: Status: Chronic Qualifiers: Diabetes mellitus complication detail: with other circulatory complications Diabetes mellitus complication status: with circulatory complication Diabetes mellitus long chain beamer insulin use: without fdc use Diabetes mellitus type: type 2 Qualified Code(s): E11.59 - Type 2 diabetes mellitus with other circulatory complications (10) Hyperlipidemia: Status: Chronic Qualifiers: Hyperlipidemia type: unspecified Qualified Code(s): E78.5 - Hyperlipidemia, unspecified (11) Alzheimer disease: Status: Chronic Qualifiers: Alzheimer's disease onset: unspecified onset Dementia behavioral disturbance: without behavioral disturbance Qualified Code(s): G30.9 - Alzheimer's disease, unspecified; F02.80 - Dementia in other diseases classified elsewhere without behavioral disturbance (12) Schizophrenia: Status: Chronic Qualifiers: Schizophrenia type: unspecified Qualified Code(s): F20.9 - Schizophrenia, unspecified Additional A&P Information Abnormal urinalysis, culture demonstrating gram-negative rods, denies urinary symptoms beyond lower abdominal pain Given positive culture, continued pain, lack of bowel movement, hypertension, elevated TSH and difficulty obtaining accurate history, will change to inpatient to allow for further evaluation of anything we could potentially help improve Continue PPI and Carafate, will continue PPI IV today and consider change to oral tomorrow after we give her additional laxative therapy to try to produce bowel movement Continue as needed Tums More aggressive bowel regimen Continue medical management of cardiac disease which currently includes aspirin therapy and clonidine According to the daughter for medical management only in terms of coronary system Allergy to statin, allergy to beta-blockade Medication options for blood pressure control are extremely limited by reported allergy list Home HCTZ held presently Check Free T4 Give another dose of Rocephin Continue home Daya Costello held presently, sliding scale insulin if needed Try to limit narcotics Supportive care otherwise Lovenox for DVT prophylaxis Called daughter and left message to call me if any questions by calling nurses station Patient does not wish to have chest compressions but otherwise would want resuscitative efforts at least in the short-term Attestations Medical Necessity Statement*: Anticipate stable across 2 midnights when persistent symptoms, positive urine culture, lack of bowel movement and challenges brought on by patient's cognitive and behavioral challenges Coding Level of Care Code Acute Network Communications Engineer for Lázarog Fwd Diagnoses Abdominal pain R10.13 Abdominal location: epigastric Chest pain R07.2 Chest pain type: precordial pain Elevated troponin R77.8 Constipation K59.00 Constipation type: unspecified constipation type CAD (coronary artery disease) I25.810 Coronary Disease-Associated Artery/Lesion type: bypass graft [place] vs. transplanted heart: [place] heart Associated angina: without angina CHF (congestive heart failure) I50.9 Heart failure type: unspecified Heart failure chronicity: chronic Hypertension I10 Hypertension type: essential hypertension Hypothyroidism E03.9 Hypothyroidism type: acquired Diabetes mellitus E11.59 Diabetes mellitus complication detail: with other circulatory complications Diabetes mellitus complication status: with circulatory complication Diabetes mellitus long chain beamer insulin use: without fdc use Diabetes mellitus type: type 2 Hyperlipidemia E78.5 Hyperlipidemia type: unspecified Alzheimer disease G30.9; F02.80 Alzheimer's disease onset: unspecified onset Dementia behavioral disturbance: without behavioral disturbance Schizophrenia F20.9 Schizophrenia type: unspecified
[2020-04-15] MEDS: pantoprazole 40 mg SDV IVP (17:44)
--- NOTE | 2020-04-15 18:49 | PC.NURSE ---
Received report from MARY Huffman. Patient resting in bed watching tv. Patient reports feeling some better with occasional dizziness that is bothersome . Patient is in good spirits and appears to be feeling well. C/o pain only mild to abd upon movement. Denies other discomforts or needs. No distress observed. Assessment completed as documented.
[2020-04-15 20:21] LABS: Glucose Point of Care 89 mg/dL (70-110)
[2020-04-15] MEDS: magnesium citrate Btl 296 mL 150 ML PO (20:49)
[2020-04-15] MEDS: cefTRIAXone 1,000 MG in sodium chloride 0.9% (plus) 50 ML 100 MG IV (20:51)
--- NOTE | 2020-04-15 20:58 | PC.NURSE ---
Administered medication as ordered. Placed mag citrate on ice to prevent cramping. Instructed patient on need and expectations of the mag citrate. Patient verbalized understanding however made an awful face and stated, I have never tasted anything so horrible before. Reassured patient that medication is important. Patient continues to drink the mad citrate.
[2020-04-15] MEDS: ondansetron 2 mg/ML SDV 2 mL 4 MG IVP (22:32)
[2020-04-16] VITALS (15 sets, daily range): BP systolic 112–174; BP diastolic 54–88; PULSE 58–97; RESP 13–22; TEMP 36.4–36.9; O2SAT 94–98
[2020-04-16] MEDS: hyDRALAzine 25 mg Tablet PO (04:18)
--- NOTE | 2020-04-16 04:20 | PC.NURSE ---
Patient BP 174/78 this am. Administered Hydralazine as ordered within parameters for elevated BP. Patient able to swallow without difficulty.
[2020-04-16] MEDS: sucralfate 1 gm/10 mL Oral Liq UDC PO ×4 (06:06→21:12)
--- NOTE | 2020-04-16 06:08 | PC.NURSE ---
Patient bp currently 154/55 s/p hydralazine administration.
[2020-04-16 06:18] LABS: Glucose Point of Care 87 mg/dL (70-110)
[2020-04-16] MEDS: aspirin 81 mg EC Tablet PO (08:11)
[2020-04-16] MEDS: sennosides 8.6 mg Tablet 17.2 MG PO ×2 (08:11→17:27)
[2020-04-16] MEDS: memantine 5 mg tablet PO (08:11)
[2020-04-16] MEDS: pantoprazole 40 mg SDV IVP ×2 (08:11→21:12)
[2020-04-16] MEDS: cloNIDine 0.1 mg Tablet PO ×2 (08:11→17:27)
[2020-04-16] MEDS: docusate sodium 100 mg Capsule PO ×2 (08:11→17:27)
[2020-04-16] MEDS: levothyroxine 125 mcg Tablet PO (08:11)
[2020-04-16] MEDS: magnesium citrate Btl 296 mL 150 ML PO (11:02)
[2020-04-16] MEDS: glycerin adult supp 1 EACH PR (11:07)
[2020-04-16 11:16] LABS: Glucose Point of Care 94 mg/dL (70-110)
[2020-04-16 17:19] LABS: Glucose Point of Care 98 mg/dL (70-110)
--- NOTE | 2020-04-16 18:17 | PM.PN ---
Subjective Subjective: Interval history: She is doing much better still constipated but thinks abdominal pain is better Vitals/I&O/Wt Last Vital Signs Temp 98.4 F 04/16/20 16:00 Pulse 68 04/16/20 16:00 Resp 17 04/16/20 16:00 BP 146/58 04/16/20 17:27 Pulse Ox 98 04/16/20 12:00 04/16/20 04/16/20 04/16/20 06:59 14:59 22:59 Intake Total 420 / 2271.25 360 / 360 Balance 420 / 2271.25 360 / 360 Weight last 48 hrs Weight 97 lb 8 oz Weight 97 lb 3.2 oz Physical Exam Narrative: EXAM NARRATIVE: GENERAL: Patient is alert, awake and oriented x3. Mildly distressed with abdominal pain NECK: No jugular vein distension. HEENT: No cyanosis. No icterus. No pallor. HEART: Regular S1 and S2. No murmur, rub or gallop. LUNGS: Clear to auscultate bilaterally. ABDOMEN: Soft, mildly tender and nondistended. guarding, no rebound or tenderness. CENTRAL NERVOUS SYSTEM: Grossly nonfocal. Data : 04/15/20 04:35 04/15/20 04:35 Micro: Microbiology 04/14/20 11:20 Urine Culture - Final Urine,Clean Catch Escherichia coli A&P Assessment and plan (1) CHF (congestive heart failure): Stable. Continue current management Status: Chronic Qualifiers: Heart failure type: unspecified Heart failure chronicity: chronic Qualified Code(s): I50.9 - Heart failure, unspecified (2) CAD (coronary artery disease): Stable. Continue current regimen. Left ventricular infection moderate 40%. Status: Chronic Qualifiers: Coronary Disease-Associated Artery/Lesion type: bypass graft [place] vs. transplanted heart: [place] heart Associated angina: without angina Qualified Code(s): I25.810 - Atherosclerosis of coronary artery bypass graft(s) without angina pectoris (3) Hypertension: Well-controlled. Status: Chronic Qualifiers: Hypertension type: essential hypertension Qualified Code(s): I10 - Essential (primary) hypertension (4) Abdominal pain: Abdominal pain is her main etiology and concern for coming to the hospital. Treat as per medicine Status: Acute Qualifiers: Abdominal location: epigastric Qualified Code(s): R10.13 - Epigastric pain (5) Elevated troponin: Appear to be nonspecific at the moment. 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 transplanted heart: [place] heart Associated angina: without angina Hypertension I10 Hypertension type: essential hypertension Abdominal pain R10.13 Abdominal location: epigastric Elevated troponin R77.8
[2020-04-16] MEDS: cefTRIAXone 1,000 MG in sodium chloride 0.9% (plus) 50 ML 100 MG IV (19:36)
--- NOTE | 2020-04-16 19:49 | PC.NURSE ---
Received report from MARY Huffman. Patient resting in bed watching TV. Patient reports feeling better and wanting to go home to her little dog . Patient continues to complain of some mild dizziness with movement. Denies other pain or discomforts. Assessment completed as documented. No distress observed.
[2020-04-16 20:22] LABS: Glucose Point of Care 114 mg/dL (70-110)
[2020-04-16] MEDS: enoxaparin 40 mg/0.4 mL Syringe SUBCUT (23:07)
--- NOTE | 2020-04-16 23:33 | P.PN_ITS ---
Subjective Subjective: Interval history: Patient seen earlier today. Still has not had a bowel movement though having a lot of gaseous movement in her abdomen. Tolerating some p.o. No new complaints. Still with epigastric pain though its not as bad as it had been Vitals/I&O/Wt Last Vital Signs Temp 97.9 F 04/16/20 23:12 Pulse 58 L 04/16/20 23:12 Resp 13 04/16/20 23:12 BP 119/54 04/16/20 23:12 Pulse Ox 95 04/16/20 23:12 04/16/20 04/16/20 04/17/20 14:59 22:59 06:59 Intake Total 360 / 360 170 / 530 Balance 360 / 360 170 / 530 Weight last 48 hrs Weight 44.225 kg Weight 44.089 kg Physical Exam Const: OTHER: Alert, oriented to person place and situation HENMT: OTHER: Moist mucous membranes Eye: OTHER: Extra ocular movements are intact Resp: OTHER: Clear to ausculatoin bilaterally Cardio: OTHER: Regular rate and rhythm GI: OTHER: Abdomen soft, remains tender in epigastrum (less than prior exam) but otherwise much improved, palpable gas movement, non distended Extremity: NARRATIVE EXTREMITY EXAM: No pitting edema Neuro: OTHER: Speech clear, face symmetric, muscle wasting noted but moves all extremities Psych: OTHER: Not anxious like she had been, conversive, no obvious hallucinations Skin: OTHER: Improved color and turgor Data : 04/15/20 04:35 04/15/20 04:35 Micro: Microbiology 04/14/20 11:20 Urine Culture - Final Urine,Clean Catch Escherichia coli A&P Assessment and plan (1) Abdominal pain: Suspect secondary to gastritis/esophagitis in the impact of the degree of constipation that she has. Cannot rule out ulceration however no reported melen a, hematochezia nor any hematemesis or coffee-ground emesis. Improving slowly. Status: Acute Qualifiers: Abdominal location: epigastric Qualified Code(s): R10.13 - Epigastric pain (2) Chest pain: I believe this was actually secondary to the abdominal pain though does have a history of coronary artery disease Status: Resolved Qualifiers: Chest pain type: precordial pain Qualified Code(s): R07.2 - Precordial pain (3) Elevated troponin: Not a candidate for invasive evaluation or intervention, medical management only Status: Acute (4) Constipation: Most likely related to untreated hypothyroidism Status: Acute Qualifiers: Constipation type: unspecified constipation type Qualified Code(s): K59.00 - Constipation, unspecified (5) CAD (coronary artery disease): Status: Chronic Qualifiers: Coronary Disease-Associated Artery/Lesion type: bypass graft [place] vs. transplanted heart: [place] heart Associated angina: without angina Qualified Code(s): I25.810 - Atherosclerosis of coronary artery bypass graft(s) without angina pectoris (6) CHF (congestive heart failure): Not currently acute Status: Chronic Qualifiers: Heart failure type: unspecified Heart failure chronicity: chronic Qualified Code(s): I50.9 - Heart failure, unspecified (7) Hypertension: Status: Chronic Qualifiers: Hypertension type: essential hypertension Qualified Code(s): I10 - Essential (primary) hypertension (8) Hypothyroidism: Evidence of highly probable noncompliance with at least levothyroxine therapy based on laboratory values Status: Chronic Qualifiers: Hypothyroidism type: acquired Qualified Code(s): E03.9 - Hypothyroidism, unspecified (9) Diabetes mellitus: Status: Chronic Qualifiers: Diabetes mellitus complication detail: with other circulatory complications Diabetes mellitus complication status: with circulatory comp lication Diabetes mellitus computer terminal operator insulin use: without halfway use Diabetes mellitus type: type 2 Qualified Code(s): E11.59 - Type 2 diabetes mellitus with other circulatory complications (10) Hyperlipidemia: Allergy to statins Status: Chronic Qualifiers: Hyperlipidemia type: unspecified Qualified Code(s): E78.5 - Hyp erlipidemia, unspecified (11) Alzheimer disease: Status: Chronic Qualifiers: Alzheimer's disease onset: unspecified onset Dementia behavioral disturbance: without behavioral disturbance Qualified Code(s): G30.9 - Alzhe wellington's disease, unspecified; F02.80 - Dementia in other diseases classified elsewhere without behavioral disturbance (12) Schizophrenia: Status: Chronic Qualifiers: Schizophrenia type: unspecified Qualified Code(s): F20.9 - Schizophrenia, unspecified Additional A&P Information Abnormal urinalysis, culture demonstrating 89,000 and E. coli, denies urinary symptoms beyond lower abdominal pain Elevated AST On scheduled Senokot and Colace and has received other laxatives, continue aggressive bowel regimen Output by Sunday morning consider KUB May have to consider holding the tums Continue medical management of cardiac disease which currently includes aspirin therapy and clonidine, with clonidine at half usual home dose with good result According to the daughter for medical management only in terms of coronary system Allergy to statin, allergy to beta-blockade Medication options for blood pressure control are extremely limited by reported allergy list Home HCTZ held due to volume depletion/dehydration at admission Levothyroxine resumed at 50 mcg given the fact that she has not been on it for a n unclear period of time and I do not have a way of knowing if the dose listed on home medications is based on an accurate dosing for her, will need follow-up of labs and adjustment of dose as necessary Would be helpful to have somebody monitoring and managing patient's medications to ensure compliance Reviewed with the patient that a lot of her symptoms could be due to the thyroid and that it was very important that she was consistent with taking it, she expressed understanding and after a while did admit that she had not taken it for a while again Status post a couple of doses of Rocephin, will change to cefuroxime based on sensitivities Continue home Daya Costello held presently, sliding scale insulin if needed Repeat labs in the morning including liver function studies Supportive care otherwise Lovenox for DVT prophylaxis Daughter asked about having patient evaluated in regards to ability to care for herself and live alone. She asked about paperwork for guardianship. I did not feel that I could provide adequate determination given limited engagement with the patient only in one setting, despite understanding some of the daughter's concerns. Ruby requested psychiatry evaluation. We will see if psychiatrist here can see her while she is here Talked to patient about disposition plans and she wants to go back to live alone. She is adamant about not living with her daughter. They each have different stories to tell. Discussed with social services manager. From discussions w ith both patient and daughter, it sounds like the state has evaluated the situation in the past. Patient does not wish to have chest compressions but otherwise would want resuscitative efforts at least in the short-term Attestations Medical Necessity Statement*: Requires ongoing inpatient stay while we c mando to adjust medications that I am not sure she is routinely taking at home and work on bowel regimen for severe constipation. She lives alone and I do not feel it is safe to let her go home without some result from efforts of laxative therapy first. Coding Level of Care Code Acute Universal Grinder Tool for [facility] [facility] Diagnoses Abdominal pain R10.13 Abdominal location: epigastric Chest pain R07.2 Chest pain type: precordial pain Elevated troponin R77.8 Constipation K59.00 Constipation type: unspecified constipation type CAD (coronary artery disease) I25.810 Coronary Disease-Associated Artery/Lesion type: bypass graft [place] vs. transplanted heart: [place] heart Associated angina: without angina CHF (congestive heart failure) I50.9 Heart failure type: unspecified Heart failure chronicity: chronic Hypertension I10 Hypertension type: essential hypertension Hypothyroidism E03.9 Hypothyroidism type: acquired Diabetes mellitus E11.59 Diabetes mellitus complication detail: with other circulatory complicatio ns Diabetes mellitus complication status: with circulatory complication Diabetes mellitus computer terminal operator insulin use: without halfway use Diabetes mellitus type: type 2 Hyperlipidemia E78.5 Hyperlipidemia type: unspecified Alzheimer disease G30.9; F02.80 Alzheimer's disease onset: unspecified onset Dementia behavioral disturbance: without behavioral disturbance Schizophrenia F20.9 Schizophrenia type: unspecified
[2020-04-17] VITALS (15 sets, daily range): BP systolic 112–187; BP diastolic 51–116; PULSE 48–80; RESP 16–20; TEMP 36–37.1; O2SAT 94–99
[2020-04-17] MEDS: sodium chlor 0.9% + KCl 20 mEq 20 MEQ/1,000 ML BAG 75 MEQ IV (01:10)
[2020-04-17] MEDS: sucralfate 1 gm/10 mL Oral Liq UDC PO ×4 (06:03→21:39)
[2020-04-17] MEDS: lactulose oral liq 20 gm/30 mL UDC 30 GM PO (06:03)
--- NOTE | 2020-04-17 06:06 | PC.NURSE ---
Received in report at 1830 yesterday that patient had had a very large BM. When looking at I&O no BM was documented. Asked patient and she stated, Oh yes I did! They gave me prune juice yesterday and I had to get up in a hurry. I made a mess on the floor. Lactulose given as ordered this am.
[2020-04-17 06:24] LABS: Glucose Point of Care 86 mg/dL (70-110)
[2020-04-17] MEDS: memantine 5 mg tablet PO (09:23)
[2020-04-17] MEDS: pantoprazole 40 mg SDV IVP ×2 (09:23→21:40)
[2020-04-17] MEDS: levothyroxine 50 mcg Tablet PO (09:23)
[2020-04-17] MEDS: aspirin 81 mg EC Tablet PO (09:23)
[2020-04-17] MEDS: docusate sodium 100 mg Capsule PO ×2 (09:23→17:49)
[2020-04-17] MEDS: sennosides 8.6 mg Tablet 17.2 MG PO ×2 (09:23→17:49)
[2020-04-17] MEDS: cefUROXime 250 mg Tablet PO ×2 (09:24→17:49)
[2020-04-17] MEDS: cloNIDine 0.1 mg Tablet PO (09:24)
--- NOTE | 2020-04-17 09:39 | USR_ITS ---
PROCEDURE INFORMATION: Exam: US Duplex Bilateral Extracranial Arteries Exam date and time: 04/17/2020 10:44 AM Age: 79 years old Clinical indication: Dizziness; Prior surgery; Surgery date: 6+ months; Surgery type: Bilateral ceas (unclear when); Additional info: Dizzines TECHNIQUE: Imaging protocol: Real-time Duplex ultrasound scan of the bilateral carotid and vertebral arteries combining mayo scale, color Doppler and spectral waveform analysis. Bilateral exam. COMPARISON: CT head wo con* [id number] 04/17/2020 10:32 AM FINDINGS: Right common carotid artery: Unremarkable. No occlusion or stenosis. Waveforms are normal. Right internal carotid artery: There is coarse calcific atherosclerotic plaque. Focally increased velocity involving the right proximal internal carotid artery is compatible with a 50-69% degree of stenosis. Right ICA/CCA ratio: Within normal limits. Right external carotid artery: No stenosis in the origin. Right vertebral artery: Unremarkable. Antegrade flow. Left common carotid artery: Unremarkable. No occlusion or stenosis. Waveforms are normal. Left internal carotid artery: There is coarse calcific atherosclerotic plaque Focally increased velocity involving the left mid internal carotid artery is compatible with a 50-69% degree of stenosis. Left ICA/CCA ratio: Within normal limits. Left external carotid artery: No stenosis in the origin. Left vertebral artery: Unremarkable. Antegrade flow. US/CV carotid duplex BI* [id number] IMPRESSION: Velocity measurements compatible with a 50-69% degree of stenosis involving the right proximal internal carotid artery and 50-69% degree of stenosis involving the left mid internal carotid artery. REFERENCES: SRU CRITERIA. The degree of internal carotid artery stenosis is based on criteria defined by the Society of Radiologists in Ultrasound (SRU). Normal is no stenosis. Mild is less than 50% stenosis. Moderate is 50-69% stenosis. Severe is greater than 69% stenosis to near occlusion. Near occlusion is a markedly narrowed lumen. Total occlusion is no detectable patent lumen.
--- NOTE | 2020-04-17 09:39 | CTR_ITS ---
PROCEDURE INFORMATION: Exam: CT Head Without Contrast Exam date and time: 04/17/2020 10:22 AM Age: 79 years old Clinical indication: Dizziness TECHNIQUE: Imaging protocol: Computed tomography of the head without contrast. Radiation optimization: All CT scans at this facility use at least one of these dose optimization techniques: automated exposure control; mA and/or kV adjustment per patient size (includes targeted exams where dose is matched to clinical indication); or iterative reconstruction. COMPARISON: No relevant prior studies available. RADIATION DOSE METRICS: Total DLP (mGy-cm): 704.89 FINDINGS: Brain: There is no acute intracranial hemorrhage or mass effect. Mild diffuse volume loss is within the range of normal for patient age. There are small vessel ischemic changes within the periventricular and subcortical white matter, but the normal mayo/white matter delineation is maintained. 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 Cerebral ventricles: No ventriculomegaly. Bones/joints: Unremarkable. No acute fracture. Paranasal sinuses: Visualized sinuses are unremarkable. No fluid levels. Mastoid air cells: Visualized mastoid air cells are well aerated. Soft tissues: Unremarkable. CT/CT head wo con* [id number] IMPRESSION: No acute intracranial hemorrhage or edema. Radiation Dose CTDIVOL = (mGy): DLP = 704.89 (mGy-cm)
[2020-04-17] MEDS: acetaminophen 325 mg Tablet 650 MG PO (09:52)
--- NOTE | 2020-04-17 09:54 | PC.NURSE ---
Doctor at bedside. Pt reported dizziness and complains of pain on her left side frontal forehead, lower back on her tailbone area. Pt reported that she hit her head on a cabinet door in her apartment. She was lightheaded and dizzy. Doctor order to check orthostatic BP's- BP lying-183/77; sitting-174/78; standing-170/116. Administer PRN mg of Tylenol. Dr ordered CT scan head and CV carotid.
[2020-04-17 11:06] LABS: Glucose Point of Care 88 mg/dL (70-110)
[2020-04-17] MEDS: hyDRALAzine 25 mg Tablet PO (11:31)
--- NOTE | 2020-04-17 13:59 | P.PN_ITS ---
Subjective Subjective: Interval history: This morning patient was examined, she sitting up to the side of the bed, does complain of some lightheadedness when changing positions no nausea, no vomiting, no lightheadedness, no dizziness, no focal neurologic deficits reported There is some animosity between patient and her daughter, she tells me that she does not want her daughter to have control over her life, she does not want to go to snf, she feels that her daughter is forcing her to go to snf, it seems like that she does not trust the opinion of her daughter. Patient tells me that her youngest daughter she feels at because of Marli. What happened a few years ago was her youngest daughter had some complaints of shortness of breath and weakness, she went over to Marli's house, and Marli says she was okay, but her youngest daughter remained symptomatic. dorina pleaded with her youngest daughter to go to the emergency room as she thought she had a blood clot, but she declined, telling her that Marli said I was okay. Eventually her youngest daughter got very ill, eventually went to the emergency room, fell into a coma and was diagnosed with extensive blood clots and . It sounds a a lot like she blames Mrali for her youngest daughter's . In addition Marli's , dorina feels that all she really cared about with him was his money. So nonetheless there is a lot of animosity between the two, and she does not want me to involve her daughter in her care, she is okay with me discussing with her her medical history and diagnosis, but she does not want Marli to make decisions for her. Vitals/I&O/Wt Last Vital Signs Temp 96.8 F L 04/17/20 10:54 Pulse 77 04/17/20 10:54 Resp 18 04/17/20 10:54 BP 187/87 04/17/20 10:54 Pulse Ox 95 04/17/20 10:54 04/16/20 04/17/20 04/17/20 22:59 06:59 14:59 Intake Total 170 / 1530 440 / 440 Balance 170 / 1530 440 / 440 Weight last 48 hrs Weight 44.951 kg Weight 44.225 kg Physical Exam Const: COMMON NORMALS: no acute distress and patient oriented x3 HENMT: COMMON NORMALS: normocephalic HEAD & SCALP: normocephalic Neck/C-Spine: COMMON NORMALS: no JVD Resp: COMMON NORMALS: normal respiratory effort, No retractions, No use of accessory muscles and clear to auscultation bilaterally AUSCULTATION: clear to auscultation bilaterally Cardio: COMMON NORMALS: no JVD, regular rate, regular rhythm, S1 normal heart sound present and S2 normal heart sound present RATE: regular rate RHYTHM: regular rhythm HEART SOUNDS: S1 normal heart sound present and S2 normal heart sound present GI: COMMON NORMALS: Normal to inspection, nondistended, normoactive bowel sounds present, Soft to palpation, non-tender, No hepatosplenomegaly present, no masses and no bruits PALPATION: Yes Soft to palpation and Yes No hepatosplenomegaly present Extremity: COMMON NORMALS: capillary refill normal, no clubbing, cyanosis or edema, no calf tenderness and no pedal edema Neuro: COMMON NORMALS: patient oriented x3 Psych: COMMON NORMALS: mental status grossly normal Data : 04/15/20 04:35 04/15/20 04:35 Micro: Microbiology 04/14/20 11:20 Urine Culture - Final Urine,Clean Catch Escherichia coli A&P Assessment and plan (1) Dizziness: -We will do orthostatic vitals -We will do carotid ultrasound -We will do CT of the head -Continue telemetry monitoring -aspirin 81mg qD -Has allergies to statin Status: Acute (2) Abdominal pain: Suspect secondary to gastritis/esophagitis in the impact of the degree of constipation that she has. Cannot rule out ulceration however no reported melena, hematochezia nor any hematemesis or coffee-ground emesis. Improving slowly. Status: Acute Qualifiers: Abdominal location: epigastric Qualified Code(s): R10.13 - Epigastric pain (3) Chest pain: I believe this was actually secondary to the abdominal pain though does have a history of coronary artery disease Status: Resolved Qualifiers: Chest pain type: precordial pain Qualified Code(s): R07.2 - Precordial pain (4) Elevated troponin: Not a candidate for invasive evaluation or intervention, medical management only Status: Acute (5) Constipation: Most likely related to untreated hypothyroidism Status: Acute Qualifiers: Constipation type: unspecified constipation type Qualified Code(s): K59.00 - Constipation, unspecified (6) CAD (coronary artery disease): Status: Chronic Qualifiers: Coronary Disease-Associated Artery/Lesion type: bypass graft [place] vs. transplanted heart: [place] heart Associated angina: without angina Qualified Code(s): I25.810 - Atherosclerosis of coronary artery bypass graft(s) without angina pectoris (7) CHF (congestive heart failure): Not currently acute Status: Chronic Qualifiers: Heart failure type: unspecified Heart failure chronicity: chronic Qualified Code(s): I50.9 - Heart failure, unspecified (8) Hypertension: Status: Chronic Qualifiers: Hypertension type: essential hypertension Qualified Code(s): I10 - Essential (primary) hypertension (9) Hypothyroidism: Evidence of highly probable noncompliance with at least levothyroxine therapy based on laboratory values Status: Chronic Qualifiers: Hypothyroidism type: acquired Qualified Code(s): E03.9 - Hypothyroidism, unspecified (10) Diabetes mellitus: Status: Chronic Qualifiers: Diabetes mellitus complication detail: with other circulatory complications Diabetes mellitus complication status: with circulatory complication Diabetes mellitus nursing home insulin use: without intermodal dispatcher use Diabetes mellitus type: type 2 Qualified Code(s): E11.59 - Type 2 diabetes mellitus with other circulatory complications (11) Hyperlipidemia: Allergy to statins Status: Chronic Qualifiers: Hyperlipidemia type: unspecified Qualified Code(s): E78.5 - Hyperlipidemia, unspecified (12) Alzheimer disease: Status: Chronic Qualifiers: Alzheimer's disease onset: unspecified onset Dementia behavioral disturbance: without behavioral disturbance Qualified Code(s): G30.9 - Alzheimer's disease, unspecified; F02.80 - Dementia in other diseases classified elsewhere without behavioral disturbance (13) Schizophrenia: Status: Chronic Qualifiers: Schizophrenia type: unspecified Qualified Code(s): F20.9 - Schizophrenia, unspecified Additional A&P Information Abnormal urinalysis showing E. coli, start Bactrim On scheduled Senokot and Colace and has received other laxatives, continue aggressive bowel regimen Output by Sunday morning consider KUB May have to consider holding the tums Continue medical management of cardiac disease which currently includes aspirin therapy and clonidine, with clonidine at half usual home dose with good result Patient only wants medical management for coronary artery disease Allergy to statin, allergy to beta-blockade Medication options for blood pressure control are extremely limited by reported allergy list Home HCTZ held due to volume depletion/dehydration at admission Levothyroxine resumed at 50 mcg given the fact that she has not been on it for an unclear period of time and I do not have a way of knowing if the dose listed on home medications is based on an accurate dosing for her, will need follow-up of labs and adjustment of dose as necessary Home health care Status post a couple of doses of Rocephin, will change to cefuroxime based on sensitivities Continue home Daya Costello held presently, sliding scale insulin if needed Repeat labs in the morning including liver function studies Supportive care otherwise Lovenox for DVT prophylaxis -Patient is alert oriented x3, answering all questions appropriately, I do not see any significant evidence of dementia at this point, she does not want daughter kenji to make decisions for her, but is okay with me discussing her care Daughter asked about having patient evaluated in regards to ability to care for herself and live alone. She asked about paperwork for guardianship. I did not feel that I could provide adequate determination given limited engagement with the patient only in one setting, despite understanding some of the daughter's concerns. Kenji requested psychiatry evaluation. Talked to patient about disposition plans and she wants to go back to live alone. She is adamant about not living with her daughter. They each have different stories to tell. Discussed with social director. From discussions with both patient and daughter, it sounds like the state has evaluated the situation in the past. 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 transplanted heart: [place] heart Associated angina: without angina CHF (congestive heart failure) I50.9 Heart failure type: unspecified Heart failure chronicity: chronic Hypertension I10 Hypertension type: essential hypertension Hypothyroidism E03.9 Hypothyroidism type: acquired Diabetes mellitus E11.59 Diabetes mellitus complication detail: with other circulatory complications Diabetes mellitus complication status: with circulatory complication Diabetes mellitus nursing home insulin use: without nursing home use Diabetes mellitus type: type 2 Hyperlipidemia E78.5 Hyperlipidemia type: unspecified Alzheimer disease G30.9; F02.80 Alzheimer's disease onset: unspecified onset Dementia behavioral disturbance: without behavioral disturbance Schizophrenia F20.9 Schizophrenia type: unspecified
--- NOTE | 2020-04-17 14:27 | PM.PN ---
Subjective Subjective: Interval history: Stable denies any more pain. She has passed stool. Vitals/I&O/Wt Last Vital Signs Temp 96.8 F L 04/17/20 10:54 Pulse 77 04/17/20 10:54 Resp 18 04/17/20 10:54 BP 187/87 04/17/20 10:54 Pulse Ox 95 04/17/20 10:54 04/16/20 04/17/20 04/17/20 22:59 06:59 14:59 Intake Total 170 / 1530 440 / 440 Balance 170 / 1530 440 / 440 Weight last 48 hrs Weight 99 lb 1.6 oz Weight 97 lb 8 oz Physical Exam Narrative: EXAM NARRATIVE: GENERAL: Patient is alert, awake and oriented x3. Not in distress NECK: No jugular vein distension. HEENT: No cyanosis. No icterus. No pallor. HEART: Regular S1 and S2. No murmur, rub or gallop. LUNGS: Clear to auscultate bilaterally. ABDOMEN: Soft, mildly tender and nondistended. guarding, no rebound or tenderness. CENTRAL NERVOUS SYSTEM: Grossly nonfocal. Data : 04/15/20 04:35 04/15/20 04:35 A&P Assessment and plan (1) CHF (congestive heart failure): We will compensated Status: Chronic Qualifiers: Heart failure type: unspecified Heart failure chronicity: chronic Qualified Code(s): I50.9 - Heart failure, unspecified (2) CAD (coronary artery disease): Stable. Status: Chronic Qualifiers: Coronary Disease-Associated Artery/Lesion type: bypass graft [place] vs. transplanted heart: [place] heart Associated angina: without angina Qualified Code(s): I25.810 - Atherosclerosis of coronary artery bypass graft(s) without angina pectoris (3) Hypertension: Well-controlled. Status: Chronic Qualifiers: Hypertension type: essential hypertension Qualified Code(s): I10 - Essential (primary) hypertension (4) Abdominal pain: Pain better improved. Patient has passed stool. Status: Acute Qualifiers: Abdominal location: epigastric Qualified Code(s): R10.13 - Epigastric pain (5) Elevated troponin: Nonspecific stable continue current regimen Status: Acute Attestations Medical Necessity Statement*: Patient require continuation hospitalization for above defined care Coding Level of Care Code Acute Social Media Assistant for [facility] Fwd Diagnoses CHF (congestive heart failure) I50.9 Heart failure type: unspecified Heart failure chronicity: chronic CAD (coronary artery disease) I25.810 Coronary Disease-Associated Artery/Lesion type: bypass graft [place] vs. transplanted heart: [place] heart Associated angina: without angina Hypertension I10 Hypertension type: essential hypertension Abdominal pain R10.13 Abdominal location: epigastric Elevated troponin R77.8
--- NOTE | 2020-04-17 14:30 | PC.NURSE ---
Physician notified on pt's Bradycardia in 40s to 50s Pt is laying in bed and her HR is bradycardic. She reports of being dizzy. BP-94/31 on her right side lying position. Reposition pt on her back and Trendelenburg position the bed. 1500 pm- BP is 125/51, HR-52. Pt denies any dizziness at this time. Notified Dr. Gonsalez and order to get EKG. EKG taken. Will monitor.
--- NOTE | 2020-04-17 15:16 | ECG_ITS ---
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 Paraprofessional: : [id number] Requested By: Zachariah Gonsalez Order Number: [id number] Reading MD: SHARLENE RICARDO Measurements Intervals [place] Rate: 50 P: 62 MI: 253 QRS: -53 QRSD: 136 T: 129 QT: 483 QTc: 443 Interpretive Statements SINUS BRADYCARDIA WITH FIRST DEGREE AV BLOCK WITH OCCASIONAL SUPRAVENTRICULAR PREMATURE COMPLEXES MARKED LEFT AXIS DEVIATION [QRS AXIS < -30] INTRAVENTRICULAR CONDUCTION DELAY [130+ ms QRS DURATION] Compared to ECG 04/14/2020 17:18:11 First degree AV block now present Intraventricular conduction delay now present Atrial fibrillation no longer present Ventricular premature complex(es) no longer present Aberrant conduction of supraventricular beat(s) no longer present Left bundle-branch block no longer present Electronically Signed On 04-17-2020 18:14:29 TELLER HEAD by SHARLENE RICARDO [email or web address]
--- NOTE | 2020-04-17 16:00 | PC.NURSE ---
Feather Maker notified via telephone Noted Sinus Bradycardia, HR-40s to 50s. 1500 pm- BP went down 94/31. Trendelenburg position the bed. Pt BP recheck in this position 125/51 1525 pm- BP- 121/46 Informed that pt has been complaining of dizziness this morning BP-174-187 sytolic/78-116 diastolic. Pt received scheduled Catapres 0.1 mg and PRN Hydralazine 25 mg orally at noon. Received order to change Catapres to once a day tomorrow night. And he will start pt on Losartan orally starting tomorrow for BP control.
[2020-04-17 16:07] LABS: Glucose Point of Care 101 mg/dL (70-110)
--- NOTE | 2020-04-17 16:11 | PC.NURSE ---
Encourage pt to drink fluids Reinforcement needed.
[2020-04-17] MEDS: sulfamethoxazole-trimeth DS 160-800 mg Tablet 1 TAB PO (17:49)
--- NOTE | 2020-04-17 20:01 | PC.NURSE ---
Received report from MARY Figueroa. Patient resting in bed talking on the phone and watching tv. Denies pain or needs at this time. No distress observed.
[2020-04-17 20:37] LABS: Glucose Point of Care 94 mg/dL (70-110)
[2020-04-17] MEDS: magnesium hydroxide 30 mL UDC PO (21:39)
[2020-04-17] MEDS: enoxaparin 40 mg/0.4 mL Syringe SUBCUT (23:20)
[2020-04-18] VITALS (10 sets, daily range): BP systolic 116–176; BP diastolic 64–92; PULSE 61–81; RESP 15–29; TEMP 36.1–37.1; O2SAT 94–100
[2020-04-18 03:58] LABS: Basophils # 0.1 10^3/uL (0.0-0.1); Basophils % 1.7 %; Eosinophils # 0.5 10^3/uL (0.0-0.8); Eosinophils % 8.8 %; Hemoglobin 12.7 g/dL (11.5-15.3); Lymphocytes # 1.3 10^3/uL (0.8-4.8); Lymphocytes % 24.9 %; Mean Corpuscular HGB Conc 32.6 g/dL (30.0-36.0); Mean Corpuscular Hemoglobin 29.9 pg (28.0-34.0); Mean Corpuscular Volume 91.8 fL (81-99); Mean Platelet Volume 9.8 fL (7.4-10.4); Monocytes # 0.7 10^3/uL (0.2-0.9); Monocytes % 13.6 %; Neutrophils # 2.67 10^3/uL (1.8-7.7); Nucleated Red Blood Cells % 0 %; Platelet Count 217 10^3/cmm (130-400); Red Blood Count 4.25 10^6/uL (4.1-5.3); Red Cell Distribution Width 13.3 % (12.1-15.1); White Blood Count 5.2 10^3/uL (4.0-10.0)
[2020-04-18 04:28] LABS: Alanine Aminotransferase 18 U/L (0-33); Albumin Level 3.4 g/dL (3.5-5.2); Alkaline Phosphatase 38 IU/L (35-105); Anion Gap 12.1 (5-19); Aspartate Amino Transferase 39 U/L (0-32); Blood Urea Nitrogen 10 mg/dL (8-23); Calcium 8.5 mg/dL (8.5-10.5); Carbon Dioxide 27 mmol/L (22-29); Chloride 101 mmol/L (98-107); Globulin 2.1 g/dL (1.3-4.6); Glucose 91 mg/dL (65-115); Osmolality Calculated 281 mOsm/kg (285-295); Potassium 4.1 mmol/L (3.5-5.1); Sodium 136 mmol/L (136-145); Total Bilirubin 0.4 mg/dL (0.15-1.2); Total Protein 5.5 g/dL (6.6-8.7)
[2020-04-18] MEDS: sucralfate 1 gm/10 mL Oral Liq UDC PO ×4 (06:03→21:27)
[2020-04-18 07:23] LABS: Glucose Point of Care 87 mg/dL (70-110)
[2020-04-18] MEDS: losartan 50 mg Tablet 25 MG PO (07:59)
[2020-04-18] MEDS: aspirin 81 mg EC Tablet PO (07:59)
[2020-04-18] MEDS: cefUROXime 250 mg Tablet PO ×2 (07:59→17:34)
[2020-04-18] MEDS: bisacodyl 5 mg Tablet 10 MG PO (07:59)
[2020-04-18] MEDS: levothyroxine 50 mcg Tablet PO (07:59)
[2020-04-18] MEDS: docusate sodium 100 mg Capsule PO ×2 (07:59→17:34)
[2020-04-18] MEDS: sennosides 8.6 mg Tablet 17.2 MG PO ×2 (08:00→17:34)
[2020-04-18] MEDS: sulfamethoxazole-trimeth DS 160-800 mg Tablet 1 TAB PO ×2 (08:00→17:34)
[2020-04-18] MEDS: pantoprazole 40 mg SDV IVP ×2 (08:00→21:27)
[2020-04-18] MEDS: memantine 5 mg tablet PO (08:00)
--- NOTE | 2020-04-18 09:00 | PC.SOCIAL ---
IMM Page 2 of IMM explained to patient. She verbalizes understanding. Initialed, dated, and timed and placed in chart. Copy provided to patient.
--- NOTE | 2020-04-18 09:14 | CTR_ITS ---
PROCEDURE INFORMATION: Exam: CT Angiography Head With Contrast Exam date and time: 04/18/2020 9:26 AM Age: 79 years old Clinical indication: Dizziness and giddiness; Additional info: Bilateral cartoid artery senosis, dizzines TECHNIQUE: Imaging protocol: Computed tomography angiography of the head with intravenous contrast. 3D rendering (Not supervised by radiologist): MIP and/or 3D reconstructed images were created by the technologist. Radiation optimization: All CT scans at this facility use at least one of these dose optimization techniques: automated exposure control; mA and/or kV adjustment per patient size (includes targeted exams where dose is matched to clinical indication); or iterative reconstruction. Contrast material: VISI 320; Contrast volume: 95 ml; Contrast route: INTRAVENOUS (IV); COMPARISON: CT head wo con* [id number] 04/17/2020 10:32 AM RADIATION DOSE METRICS: Total DLP (mGy-cm): 1196.27 FINDINGS: ANTERIOR CIRCULATION: Right internal carotid artery: There are coarse calcific atherosclerotic changes of the right carotid siphon. There is moderate stenosis of the right cavernous segment. There is severe focal stenosis of the right supraclinoid segment. Right middle cerebral artery: There is moderate focal stenosis at the origin of the right middle cerebral artery. No aneurysm. Right anterior cerebral artery: Unremarkable. No occlusion or significant stenosis. No aneurysm. Left internal carotid artery: There are coarse calcific atherosclerotic changes of the left carotid siphon. There is moderate stenosis of the left clinoid segment. Left middle cerebral artery: Unremarkable. No occlusion or significant stenosis. No aneurysm. Left anterior cerebral artery: Unremarkable. No occlusion or significant stenosis. No aneurysm. POSTERIOR CIRCULATION: Right vertebral artery: Unremarkable. No occlusion or significant stenosis. No aneurysm. Left vertebral artery: Unremarkable. No occlusion or significant stenosis. No aneurysm. Basilar artery: Unremarkable. No occlusion or significant stenosis. No aneurysm. Right posterior cerebral artery: Unremarkable. No occlusion or significant stenosis. No aneurysm. Left posterior cerebral artery: Unremarkable. No occlusion or significant stenosis. No aneurysm. Brain: No definite mass, mass effect, or midline shift. Cerebral ventricles: No ventriculomegaly. Bones/joints: Soft tissues: Unremarkable. IMPRESSION: 1. Moderate stenosis at the origin of the right middle cerebral artery. 2. Moderate stenosis of the right cavernous segment and severe focal stenosis of the right supraclinoid internal carotid segment. 3. Moderate stenosis of the left clinoid segment. PROCEDURE INFORMATION: Exam: CT Angiography Neck With Contrast Exam date and time: 04/18/2020 9:26 AM Age: 79 years old Clinical indication: Dizziness and giddiness; Additional info: Bilateral cartoid artery senosis, dizzines TECHNIQUE: Imaging protocol: Computed tomography angiography of the neck with intravenous contrast. 3D rendering (Not supervised by radiologist): MIP and/or 3D reconstructed images were created by the technologist. Radiation optimization: All CT scans at this facility use at least one of these dose optimization techniques: automated exposure control; mA and/or kV adjustment per patient size (includes targeted exams where dose is matched to clinical indication); or iterative reconstruction. Contrast material: VISI 320; Contrast volume: 95 ml; Contrast route: INTRAVENOUS (IV); COMPARISON: CT head wo con* [id number] 04/17/2020 10:32 AM RADIATION DOSE METRICS: Total DLP (mGy-cm): 1196.27 FINDINGS: Right common carotid artery: There is ulcerating plaque at the level of the distal common carotid artery. Right internal carotid artery: There is moderate stenosis at the origin of the right internal carotid artery. Right external carotid artery: There is severe stenosis at the origin of the right external carotid artery. Right vertebral artery: No stenosis. No dissection or occlusion. Left common carotid artery: There is severe focal stenosis at the origin of the left common carotid artery. There is moderate stenosis of the mid to distal common carotid artery. Left internal carotid artery: There are coarse calcific and noncalcific atherosclerotic changes of the left carotid bulb. There is diffuse contour irregularity of the carotid bulb and proximal internal carotid artery. Left external carotid artery: There is severe stenosis at the origin of the left external carotid artery. Left vertebral artery: No stenosis. No dissection or occlusion. Aorta: Other vasculature: Calcific and noncalcific atherosclerotic changes involve the aorta. There is moderate stenosis at the level of the arch. There is severe focal stenosis at the origin of the left subclavian artery. Bones/joints: No acute fracture. There are areas of focal sclerosis within the C6 and C7 bodies. Sclerotic metastases are difficult to exclude in the appropriate clinical setting. There is multilevel degenerative disc disease and spondylosis as well. Soft tissues: Normal. No significant soft tissue swelling. CT/CT angio headneck* [id number] IMPRESSION: 1. Severe focal stenosis at the origin of the left subclavian artery. 2. Severe focal stenosis at the origin of the left common carotid artery. Moderate stenosis of the mid to distal common carotid artery. 3. Moderate stenosis at the origin of the right internal carotid artery. 4. Ulcerating plaque at the level of the distal right common carotid artery. 5. Severe stenosis at the origin of the right and left external carotid arteries. REFERENCES: NASCET CRITERIA. The degree of internal carotid artery stenosis is based on NASCET criteria. Normal is no stenosis. Mild is less than 50% stenosis. Moderate is 50-69% stenosis. Severe is 70% to 99% stenosis. Total occlusion is no detectable patent lumen. Radiation Dose CTDIVOL = (mGy): DLP = 1196.27~1196.27 (mGy-cm)
[2020-04-18] MEDS: iodixanol 320 mg/mL 100mL Btl IV (09:48)
[2020-04-18 10:58] LABS: Glucose Point of Care 125 mg/dL (70-110)
--- NOTE | 2020-04-18 13:49 | P.PN_ITS ---
Subjective Subjective: Interval history: Patient continues to have complaints of dizziness, tinnitus can occur whenever, sometimes associate with head position, not related associate with our manipulation, no nausea, no vomiting, is more of the room spinning around her, no significant hearing loss, no tinnitus, Vitals/I&O/Wt Last Vital Signs Temp 98.4 F 04/18/20 10:37 Pulse 78 04/18/20 10:37 Resp 29 H 04/18/20 10:37 BP 176/70 04/18/20 10:37 Pulse Ox 100 04/18/20 10:37 04/17/20 04/18/20 04/18/20 22:59 06:59 14:59 Intake Total 360 / 1000 240 / 240 Output Total 700 / 700 1200 / 1200 Balance -340 / 300 -960 / -960 Weight last 48 hrs Weight 45.45 kg Weight 44.951 kg Physical Exam Narrative: EXAM NARRATIVE: Jethro Hallpike maneuver negative Const: COMMON NORMALS: no acute distress and patient oriented x3 HENMT: COMMON NORMALS: normocephalic HEAD & SCALP: normocephalic Neck/C-Spine: COMMON NORMALS: no JVD Resp: COMMON NORMALS: normal respiratory effort, No retractions, No use of accessory muscles and clear to auscultation bilaterally AUSCULTATION: clear to auscultation bilaterally Cardio: COMMON NORMALS: no JVD, regular rate, regular rhythm, S1 normal heart sound present and S2 normal heart sound present RATE: regular rate RHYTHM: regular rhythm HEART SOUNDS: S1 normal heart sound present and S2 normal heart sound present GI: COMMON NORMALS: Normal to inspection, nondistended, normoactive bowel sounds present, Soft to palpation, non-tender, No hepatosplenomegaly present, no masses and no bruits PALPATION: Yes Soft to palpation and Yes No hepatosplenomegaly present Extremity: COMMON NORMALS: capillary refill normal, no clubbing, cyanosis or edema, no calf tenderness and no pedal edema Neuro: COMMON NORMALS: patient oriented x3 Psych: COMMON NORMALS: mental status grossly normal Data : 04/18/20 03:21 04/18/20 03:21 A&P Assessment and plan (1) Dizziness: -Orthostatic vitals within normal limits -Carotid artery ultrasound showed:Velocity measurements compatible with a 50-69% degree of stenosis involving the right proximal internal carotid artery and 50- 69% degree of stenosis involving the left mid internal carotid artery. -We will do CT of the head showed: There are small vessel ischemic changes wit hin the periventricular and subcortical white matter, but the normal mayo/white matter delineation is maintained. 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 -CT angiogram of the head and neck shows: 1. Severe focal stenosis at the origin of the left subclavian artery. 2. Severe focal stenosis at the origin of the left common carotid artery. Moderate stenosis of the mid to distal common carotid artery. 3. Moderate stenosis at the origin of the right internal carotid artery. 4. Ulcerating plaque at the level of the distal right common carotid artery. 5. Severe stenosis at the origin of the right and left external carotid arteries. -cardiac electrocardiogram shows: Moderately inceased left ventricular cavity size. Global left ventricular hypokinesis with regional anterior wall severe hypokinesis. Left ventricular ejection fraction is estimated at 40 %. Moderately decreased left ventricular systolic function. Grade I/IV diastolic dysfunction (abnormal relaxation filling pattern), normal to mildly elevated filling pressures. 2-Moderately increased left atrial size. 3-Severe aortic valve calcification. Mild aortic valve stenosis, mean gradient 3.7 mmHg, YANY 1.6 cm squared. [id number] aortic valve regurgitation. 4-Structurally normal mitral valve without significant stenosis or prolapse. There is no mitral regurgitation. Mild mitral annular calcification. 5-There is no pericardial effusion. 6-Pulmonary artery systolic pressure is within normal limits. 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, that can cause unsteadiness, she does have sinus bradycardia with intraventricular conduction delay, she does have significant left carotid artery stenosis, with left subclavian artery stenosis, could have evidence of subclavian steal, right carotid artery stenosis Plan: -We will discuss with cardiology and or cardiothoracic surgery about surgical intervention and/or stenting -aspirin 81mg qD -Has allergies to statin, but patient is willing to try medication, start atorvastatin 40 mg Status: Acute (2) Abdominal pain: Suspect secondary to gastritis/esophagitis in the impact of the degree of constipation that she has. Cannot rule out ulceration however no reported melena, hematochezia nor any hematemesis or coffee-ground emesis. Improving slowly. Status: Acute Qualifiers: Abdominal location: epigastric Qualified Code(s): R10.13 - Epigastric pain (3) Chest pain: I believe this was actually secondary to the abdominal pain though does have a history of coronary artery disease Status: Resolved Qualifiers: Chest pain type: precordial pain Qualified Code(s): R07.2 - Precordial pain (4) Elevated troponin: Not a candidate for invasive evaluation or intervention, medical [facility] only Status: Acute (5) Constipation: Most likely related to untreated hypothyroidism Status: Acute Qualifiers: Constipation type: unspecified constipation type Qualified Code(s): K59.00 - Constipation, unspecified (6) CAD (coronary artery disease): Status: Chronic Qualifiers: Coronary Disease-Associated Artery/Lesion type: bypass graft [place] vs. transplanted heart: [place] heart Associated angina: without angina Qualified Code(s): I25.810 - Atherosclerosis of coronary artery bypass graft(s) without angina pectoris (7) CHF (congestive heart failure): Not currently acute Status: Chronic Qualifiers: Heart failure type: unspecified Heart failure chronicity: chronic Qualified Code(s): I50.9 - Heart failure, unspecified (8) Hypertension: Status: Chronic Qualifiers: Hypertension type: essential hypertension Qualified Code(s): I10 - Essential (primary) hypertension (9) Hypothyroidism: Evidence of highly probable noncompliance with at least levothyroxine therapy based on laboratory values Status: Chronic Qualifiers: Hypothyroidism type: acquired Qualified Code(s): E03.9 - Hypothyroidism, unspecified (10) Diabetes mellitus: Status: Chronic Qualifiers: Diabetes mellitus complication detail: with other circulatory com plications Diabetes mellitus complication status: with circulatory complication Diabetes mellitus termite inspector insulin use: without termite inspector use Diabetes mellitus type: type 2 Qualified Code(s): E11.59 - Type 2 diabetes mellitus with other circulatory complications (11) Hyperlipidemia: Allergy to statins Status: Chronic Qualifiers: Hyperlipidemia type: unspecified Qualified Code(s): E78.5 - Hyperl ipidemia, unspecified (12) Alzheimer disease: Status: Chronic Qualifiers: Alzheimer's disease onset: unspecified onset Dementia behavioral disturbance: without behavioral disturbance Qualified Code(s): G30.9 - Alzheime r's disease, unspecified; F02.80 - Dementia in other diseases classified elsewhere without behavioral disturbance (13) Schizophrenia: Status: Chronic Qualifiers: Schizophrenia type: unspecified Qualified Code(s): F20.9 - Schizophrenia, unspecified Additional A&P Information Abnormal urinalysis showing E. coli, start Bactrim On scheduled Senokot and Colace and has received other laxatives, continue aggre ssive bowel regimen Output by Sunday morning consider KUB May have to consider holding the tums Continue medical management of cardiac disease which currently includes aspirin therapy and clonidine, with clonidine at half usual home dose with good result Patient only wants medical management for coronary artery disease allergy to beta-blockade Medication options for blood pressure control are extremely limited by reported allergy list Home HCTZ held due to volume depletion/dehydration at admission Levothyroxine resumed at 50 mcg given the fact that she has not been on it for an unclear period of time and I do not have a way of knowing if the dose listed on home medications is based on an accurate dosing for her, will need follow-up of labs and adjustment of dose as necessary Home health care Status post a couple of doses of Rocephin, will change to cefuroxime based on sensitivities Continue home Namenda Januvia held presently, sliding scale insulin if needed Repeat labs in the morning including liver function studies Supportive care otherwise Lovenox for DVT prophylaxis -Patient is alert oriented x3, answering all questions appropriately, I do not see any significant evidence of dementia at this point, she does not want daughter ruby to make decisions for her, but is okay with me discussing her care Daughter asked about having patient evaluated in regards to ability to care for herself and live alone. She asked about paperwork for guardianship. I did not feel that I could provide adequate determination given limited engagement with the patient only in one setting, despite understanding some of the daughter's concerns. Ruby requested psychiatry evaluation. Talked to patient about disposition plans and she wants to go back to live alone. She is adamant about not living with her daughter. They each have different stories to tell. Discussed with medical social worker. From discussions with both patient and daughter, it sounds like the state has evaluated the si tuation in the past. Patient does not wish to have chest compressions but otherwise would want res uscitative efforts at least in the short-term Attestations Medical Necessity Statement*: Patient requires hospitalization for chest pain, dizziness, carotid artery stenosis, Coding Level of Care Code Acute Cord Cutter for [facility]g Fwd Diagnoses Dizziness R42 Abdominal pain R10.13 Abdominal location: epigastric Chest pain R07.2 Chest pain type: precordial pain Elevated troponin R77.8 Constipation K59.00 Constipation type: unspecified constipation type CAD (coronary artery disease) I25.810 Coronary Disease-Associated Artery/Lesion type: bypass graft [place] vs. transplanted heart: [place] heart Associated angina: without angina CHF (congestive heart failure) I50.9 Heart failure type: unspecified Heart failure chronicity: chronic Hypertension I10 Hypertension type: essential hypertension Hypothyroidism E03.9 Hypothyroidism type: acquired Diabetes mellitus E11.59 Diabetes mellitus complication detail: with other circulatory complications Diabetes mellitus complication status: with circulatory complication Diabetes mellitus termite inspector insulin use: without correction use Diabetes mellitus type: type 2 Hyperlipidemia E78.5 Hyperlipidemia type: unspecified Alzheimer disease G30.9; F02.80 Alzheimer's disease onset: unspecified onset Dementia behavioral disturbance: without behavioral disturbance Schizophrenia F20.9 Schizophrenia type: unspecified
[2020-04-18] MEDS: atorvastatin 40 mg Tablet PO (15:37)
--- NOTE | 2020-04-18 15:44 | PM.PN ---
Subjective Subjective: Interval history: Denies any more abdominal pain. Dizziness could be from multilevel obstructive disease of left subclavian and bilateral carotid artery disease, heart rate hangs around between 40s to 70s. Brief. Of intermittent bradycardia into 30s with PAC followed by compensatory pause. IMPRESSION: 1. Severe focal stenosis at the origin of the left subclavian artery. 2. Severe focal stenosis at the origin of the left common carotid artery. Moderate stenosis of the mid to distal common carotid artery. 3. Moderate stenosis at the origin of the right internal carotid artery. 4. Ulcerating plaque at the level of the distal right common carotid artery. 5. Severe stenosis at the origin of the right and left external carotid arteries IMPRESSION: 1. Severe focal stenosis at the origin of the left subclavian artery. 2. Severe focal stenosis at the origin of the left common carotid artery. Moderate stenosis of the mid to distal common carotid artery. 3. Moderate stenosis at the origin of the right internal carotid artery. 4. Ulcerating plaque at the level of the distal right common carotid artery. 5. Severe stenosis at the origin of the right and left external carotid arteries Vitals/I&O/Wt Last Vital Signs Temp 98.8 F 04/18/20 14:47 Pulse 77 04/18/20 14:47 Resp 22 H 04/18/20 14:47 BP 145/78 04/18/20 14:47 Pulse Ox 100 04/18/20 14:47 04/18/20 04/18/20 04/18/20 06:59 14:59 22:59 Intake Total 240 / 240 Output Total 1200 / 1200 600 / 1800 Balance -960 / -960 -600 / -1560 Weight last 48 hrs Weight 100 lb 3.2 oz Weight 99 lb 1.6 oz Physical Exam Narrative: EXAM NARRATIVE: GENERAL: Patient is alert, awake and oriented x3. Not in distress NECK: No jugular vein distension. HEENT: No cyanosis. No icterus. No pallor. HEART: Regular S1 and S2. No murmur, rub or gallop. LUNGS: Clear to auscultate bilaterally. ABDOMEN: Soft, mildly tender and nondistended. guarding, no rebound or tenderness. CENTRAL NERVOUS SYSTEM: Grossly nonfocal. Data : 04/18/20 03:21 04/18/20 03:21 A&P Assessment and plan (1) CHF (congestive heart failure): Well compensated Status: Chronic Qualifiers: Heart failure type: unspecified Heart failure chronicity: chronic Qualified Code(s): I50.9 - Heart failure, unspecified (2) CAD (coronary artery disease): Stable. Status: Chronic Qualifiers: Coronary Disease-Associated Artery/Lesion type: bypass graft [place] vs. transplanted heart: [place] heart Associated angina: without angina Qualified Code(s): I25.810 - Atherosclerosis of coronary artery bypass graft(s) without angina pectoris (3) Hypertension: Well-controlled. Status: Chronic Qualifiers: Hypertension type: essential hypertension Qualified Code(s): I10 - Essential (primary) hypertension (4) Abdominal pain: Pain better improved. Patient has passed stool. Status: Acute Qualifiers: Abdominal location: epigastric Qualified Code(s): R10.13 - Epigastric pain (5) Elevated troponin: Nonspecific stable continue current regimen Status: Acute (6) Dizziness: Combination of bradycardia with moderate to severe subclavian and coronary artery disease. Continue to manage medically for now. May consider outpatient vascular surgery appointment. I will see the patient in my clinic and discuss regarding subclavian stenting. Status: Acute Attestations Medical Necessity Statement*: Require continuation hospitalization for the above defined care Coding Level of Care Code Established Pt Acute Auto Claim Representative for Chg Fwd Patient Type Established History Expanded Problem Focused Exam Expanded Problem Focused Medical Decision Making Moderate Complexity Diagnoses CHF (congestive heart failure) I50.9 Heart failure type: unspecified Heart failure chronicity: chronic CAD (coronary artery disease) I25.810 Coronary Disease-Associated Artery/Lesion type: bypass graft [place] vs. transplanted heart: [place] heart Associated angina: without angina Hypertension I10 Hypertension type: essential hypertension Abdominal pain R10.13 Abdominal location: epigastric Elevated troponin R77.8 Dizziness R42
[2020-04-18 16:20] LABS: Glucose Point of Care 96 mg/dL (70-110)
[2020-04-18] MEDS: cloNIDine 0.1 mg Tablet PO (18:01)
[2020-04-18 21:07] LABS: Glucose Point of Care 178 mg/dL (70-110)
[2020-04-18] MEDS: magnesium hydroxide 30 mL UDC PO (21:27)
[2020-04-18] MEDS: enoxaparin 40 mg/0.4 mL Syringe SUBCUT (23:42)
[2020-04-19] VITALS (7 sets, daily range): BP systolic 111–133; BP diastolic 50–71; PULSE 48–75; RESP 12–16; TEMP 36.2–36.7; O2SAT 95–98
[2020-04-19 05:39] LABS: Basophils # 0.1 10^3/uL (0.0-0.1); Basophils % 1.4 %; Eosinophils # 0.2 10^3/uL (0.0-0.8); Eosinophils % 3.2 %; Hematocrit 41.4 % (37.0-47.0); Hemoglobin 13.4 g/dL (11.5-15.3); Lymphocytes # 1.3 10^3/uL (0.8-4.8); Mean Corpuscular HGB Conc 32.4 g/dL (30.0-36.0); Mean Corpuscular Hemoglobin 29.6 pg (28.0-34.0); Mean Corpuscular Volume 91.6 fL (81-99); Mean Platelet Volume 10.1 fL (7.4-10.4); Monocytes # 0.9 10^3/uL (0.2-0.9); Monocytes % 14.3 %; Neutrophils # 3.77 10^3/uL (1.8-7.7); Neutrophils % 59.9 %; Nucleated Red Blood Cells % 0 %; Platelet Count 232 10^3/cmm (130-400); Red Blood Count 4.52 10^6/uL (4.1-5.3); Red Cell Distribution Width 13.3 % (12.1-15.1); White Blood Count 6.3 10^3/uL (4.0-10.0)
[2020-04-19 06:00] LABS: Alanine Aminotransferase 23 U/L (0-33); Albumin Level 3.7 g/dL (3.5-5.2); Alkaline Phosphatase 40 IU/L (35-105); Anion Gap 12.2 (5-19); Aspartate Amino Transferase 38 U/L (0-32); Blood Urea Nitrogen 16 mg/dL (8-23); Calcium 8.8 mg/dL (8.5-10.5); Carbon Dioxide 28 mmol/L (22-29); Chloride 102 mmol/L (98-107); Globulin 2.1 g/dL (1.3-4.6); Glucose 94 mg/dL (65-115); Magnesium 2.3 mg/dL (1.7-2.3); Osmolality Calculated 287 mOsm/kg (285-295); Phosphorus 2.8 mg/dL (2.5-4.5); Potassium 4.2 mmol/L (3.5-5.1); Sodium 138 mmol/L (136-145); Total Bilirubin 0.5 mg/dL (0.15-1.2); Total Protein 5.8 g/dL (6.6-8.7)
[2020-04-19] MEDS: sucralfate 1 gm/10 mL Oral Liq UDC PO ×2 (06:27→10:40)
[2020-04-19 06:40] LABS: Glucose Point of Care 96 mg/dL (70-110)
[2020-04-19] MEDS: aspirin 81 mg EC Tablet PO (08:57)
[2020-04-19] MEDS: cefUROXime 250 mg Tablet PO (08:58)
[2020-04-19] MEDS: cloNIDine 0.1 mg Tablet PO (08:58)
[2020-04-19] MEDS: losartan 50 mg Tablet 25 MG PO (08:58)
[2020-04-19] MEDS: docusate sodium 100 mg Capsule PO (08:58)
[2020-04-19] MEDS: sulfamethoxazole-trimeth DS 160-800 mg Tablet 1 TAB PO (08:59)
[2020-04-19] MEDS: sennosides 8.6 mg Tablet 17.2 MG PO (08:59)
[2020-04-19] MEDS: memantine 5 mg tablet PO (09:00)
[2020-04-19] MEDS: pantoprazole 40 mg SDV IVP (09:00)
[2020-04-19] MEDS: levothyroxine 50 mcg Tablet PO (09:00)
[2020-04-19] MEDS: ondansetron 4 MG Tablet PO (09:00)
[2020-04-19] MEDS: atorvastatin 40 mg Tablet PO (09:00)
[2020-04-19 11:12] LABS: Glucose Point of Care 116 mg/dL (70-110)
--- NOTE | 2020-04-19 12:19 | P.DS_ITS ---
Discharge Providers Date of Admission: 04/15/20 16:45 Date of Discharge: April 19, 2020 Attending Provider at Admission: Reina Yi MD Attending Provider at Discharge: Zachariah Gonsalez MD Diagnoses at Discharge Discharge Diagnosis (1) CHF (congestive heart failure): Status: Chronic Qualifiers: Heart failure type: unspecified Heart failure chronicity: chronic Qualified Code(s): I50.9 - Heart failure, unspecified (2) CAD (coronary artery disease): Status: Chronic Qualifiers: Coronary Disease-Associated Artery/Lesion type: bypass graft [place] vs. transplanted heart: [place] heart Associated angina: without angina Qualified Code(s): I25.810 - Atherosclerosis of coronary artery bypass graft(s) without angina pectoris (3) Hypertension: Status: Chronic Qualifiers: Hypertension type: essential hypertension Qualified Code(s): I10 - Essential (primary) hypertension (4) Abdominal pain: Status: Acute Qualifiers: Abdominal location: epigastric Qualified Code(s): R10.13 - Epigastric pain (5) Elevated troponin: Status: Acute (6) Dizziness: Status: Acute Reason for Visit Reason for Visit: ABDOMINAL PAIN / CHEST PAIN Hospital Course Hospital Course This is a 79-year-old female with a past medical history of Alzheimer's disease, CAD, aortic disease status post abdominal aortic bypass grafting, CHF, diabetes, hyperlipidemia, hypertension, hypothyroidism, bilateral carotid artery stenosis status post endarterectomy, history of CABG, who presents to [facility] due to chest pain, and dizziness For chest pain, baseline troponin 20, 6-hour 57.81, delta 37.81, EKG no acute ST-T wave changes, echocardiogram showed global left ventricular hypokinesia with regional anterior wall severe hypokinesis, left ventricular ejection fraction 40%, grade 1 of 4 diastolic dysfunction, mild aortic valve stenosis. Cardiology was consulted, patient elected for medical management, discharged on aspirin, statin, cannot tolerate beta-derek due to sinus bradycardia. Will follow up with cardiology in the next week. Patient was advised that if she were to have recurrent chest pain to come back to emergency room For patient's abdominal pain, fairly nonspecific, CT scan of the abdomen shows severe constipation, improved with bowel regimen. Patient had dizziness throughout her hospital admission: -Orthostatic vitals within normal limits -Carotid artery ultrasound showed:Velocity measurements compatible with a 50-69% degree of stenosis involving the right proximal internal carotid artery and 50- 69% degree of stenosis involving the left mid internal carotid artery. -We will do CT of the head showed: There are small vessel ischemic changes within the periventricular and subcortical white matter, but the normal mayo/white matter delineation is maintained. 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 -CT angiogram of the head and neck shows: 1. Severe focal stenosis at the origin of the left subclavian artery. 2. Severe focal stenosis at the origin of the left common carotid artery. Moderate stenosis of the mid to distal common carotid artery. 3. Moderate stenosis at the origin of the right internal carotid artery. 4. Ulcerating plaque at the level of the distal right common carotid artery. 5. Severe stenosis at the origin of the right and left external carotid arteries. -cardiac electrocardiogram shows: Moderately inceased left ventricular cavity size. Global left ventricular hypokinesis with regional anterior wall severe hypokinesis. Left ventricular ejection fraction is estimated at 40 %. Moderately decreased left ventricular systolic function. Grade I/IV diastolic dysfunction (abnormal relaxation filling pattern), normal to mildly elevated filling pressures. 2-Moderately increased left atrial size. 3-Severe aortic valve calcification. Mild aortic valve stenosis, mean gradient 3.7 mmHg, YANY 1.6 cm squared. [id number] aortic valve regurgitation. 4-Structurally normal mitral valve without significant stenosis or prolapse. There is no mitral regurgitation. Mild mitral annular calcification. 5-There is no pericardial effusion. 6-Pulmonary artery systolic pressure is within normal limits. 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, that can cause unsteadiness, she does have sinus bradycardia with intraventricular conduction delay, patient does have a history of bilateral carotid artery stenosis status post endarterectomy, now she does have recurrent significant left carotid artery stenosis, with left subclavian artery stenosis, could have evidence of subclavian steal, right carotid artery stenosis Plan: -Continue aspirin 81 mg daily, atorvastatin 40 mg daily -Patient was advised to ambulate with care, she will be discharged with home health care, she will be living with her daughter for the next few weeks -She is to follow-up with Dr. Torres this week -Follow-up with Dr. Mancera this week for consideration of surgical intervention, carotid artery stenting, which will be certainly challenging given her chest pain and echo changes as above, as she just wants medical intervention for her cardiac disease at this point Physical Exam Const: COMMON NORMALS: no acute distress and patient oriented x3 HENMT: COMMON NORMALS: normocephalic HEAD & SCALP: normocephalic Neck/C-Spine: COMMON NORMALS: no JVD Resp: COMMON NORMALS: normal respiratory effort, No retractions, No use of accessory muscles and clear to auscultation bilaterally AUSCULTATION: clear to auscultation bilaterally Cardio: COMMON NORMALS: no JVD, regular rate, regular rhythm, S1 normal heart sound present and S2 normal heart sound present RATE: regular rate RHYTHM: regular rhythm HEART SOUNDS: S1 normal heart sound present and S2 normal heart sound present GI: COMMON NORMALS: Normal to inspection, nondistended, normoactive bowel sounds present, Soft to palpation, non-tender, No hepatosplenomegaly present, no masses and no bruits PALPATION: Yes Soft to palpation and Yes No hepatosplenomegaly present Extremity: COMMON NORMALS: capillary refill normal, no clubbing, cyanosis or edema, no calf tenderness and no pedal edema Neuro: COMMON NORMALS: patient oriented x3 Psych: COMMON NORMALS: mental status grossly normal Discharge Data Data Completed and Pending: Completed Studies During Hospitalization Category Date Time Status CT abdomen pelvis w con* [id number] Stat Cat Scan 04/14/20 11:[address] angio headneck * [id number] Stat Cat Scan 04/18/20 09:[address] head wo con* [id number] Routine Cat Scan 04/17/20 09:39 Completed XR chest 1V brennan ble [id number] Stat Exams 04/14/20 11:03 Completed CV carotid duplex BI* [id number] Routine Ultrasound 04/17/20 09:39 Completed CV echo complete* [id number] Urgent Ultrasound 04/15/20 07:00 Completed Pending at discharge Category Date Time Status Complete Blood Co unt w/Auto AM LABS Lab 04/20/20 04:00 Ordered Complete Blood Co unt w/Auto AM LABS Lab 04/21/20 04:00 Ordered Comprehensive Met abolic Panel AM LA BS Lab 04/20/20 04:00 Ordered Comprehensive Met abolic Panel AM LA BS Lab 04/21/20 04:00 Ordered Magnesium AM LABS Lab 04/20/20 04:00 Ordered Magnesium AM LABS Lab 04/21/20 04:00 Ordered Phosphorus AM LAB S Lab 04/20/20 04:00 Ordered Phosphorus AM LAB S Lab 04/21/20 04:00 Ordered Labs from last 24 hours 04/19/20 04/19/20 04/19/20 10:32 06:33 04:58 WBC RBC Hgb Hct MCV MCH MCHC RDW Plt Count MPV Neut % (Auto) Lymph % (Auto) [place] % (Auto) Eos % (Auto) Baso % (Auto) Neut # (Auto) Lymph # (Auto) [place] # (Auto) Eos # (Auto) Baso # (Auto) Nucleated RBC % (a uto) Nucleated RBCs # Sodium 138 Potassium 4.2 Chloride 102 Carbon Dioxide 28 Anion Gap 12.2 BUN 16 Creatinine 1.3 H GFR Calculation Not Reportable Glucose 94 POC Glucose 116 96 Calculated Osmolal ity 287 Calcium 8.8 Phosphorus 2.8 Magnesium 2.3 Total Bilirubin 0.5 AST 38 H ALT 23 Alkaline Phosphata se 40 Total Protein 5.8 L Albumin 3.7 Globulin 2.1 04/19/20 04/18/20 04/18/20 04:58 20:08 16:09 WBC 6.3 RBC 4.52 Hgb 13.4 Hct 41.4 MCV 91.6 MCH 29.6 MCHC 32.4 RDW 13.3 Plt Count 232 MPV 10.1 Neut % (Auto) 59.9 Lymph % (Auto) 21.0 [place] % (Auto) 14.3 Eos % (Auto) 3.2 Baso % (Auto) 1.4 Neut # (Auto) 3.77 Lymph # (Auto) 1.3 [place] # (Auto) 0.9 Eos # (Auto) 0.2 Baso # (Auto) 0.1 Nucleated RBC % (a uto) 0 Nucleated RBCs # 0.0 Sodium Potassium Chloride Carbon Dioxide Anion Gap BUN Creatinine GFR Calculation Glucose POC Glucose 178 96 Calculated Osmolal ity Calcium Phosphorus Magnesium Total Bilirubin AST ALT Alkaline Phosphata se Total Protein Albumin Globulin Vitals: Last Vital Signs Temp 97.2 F L 04/19/20 07:08 Pulse 75 04/19/20 07:08 Resp 16 04/19/20 07:08 BP 131/71 04/19/20 08:58 Pulse Ox 98 04/19/20 07:08 Discharge Plan Discharge Patient Disposition: Home Condition: Stable Prescriptions: New losartan 50 mg Tablet 25 mg PO DAILY 30 Days Qty: 30 RF: 0 atorvastatin 40 mg Tablet 40 mg PO DAILY 30 Days Qty: 30 RF: 0 clonidine HCl 0.1 mg Tablet 0.1 mg PO DAILY 30 Days Qty: 30 RF: 0 cefuroxime axetil 250 mg Tablet 250 mg PO BID 5 Days Qty: 10 RF: 0 levothyroxine 50 mcg Tablet 50 mcg PO DAILY 30 Days Qty: 30 RF: 0 Continued aspirin 81 mg Tablet,Delayed Release (Dr/Ec) 81 mg PO DAILY RF: 0 nitroglycerin 0.4 mg tablet, sublingual 0.2 mg sublingual Q5M PRN (Reason: Chest Pain) RF: 0 memantine 5 mg tablet 5 mg PO DAILY RF: 0 Januvia 50 mg tablet 50 mg PO DAILY RF: 0 Discontinued clonidine HCl 0.2 mg tablet 0.2 mg PO DAILY RF: 0 levothyroxine 125 mcg tablet 125 mcg PO DAILY RF: 0 hydrochlorothiazide 12.5 mg capsule 12.5 mg PO DAILY RF: 0 clonidine HCl 0.2 mg tablet 0.2 mg PO BID RF: 0 Discharge Orders: Discharge Order (Routine); Ordered 04/19/20 Ordered By: Zachariah Gonsalez Other Ambulatory Orders: CA cardiac event monitor (Routine) Timeframe: 1 Day Facility: [facility] - Location: Cardiac Diagnostic Laboratory Ordered By: Zachariah Gonsalez Referrals: Vera Wise MD [Physician] - 1-3 days Wood Mancera MD [Physician] - 4-7 days (carotid artery stenosis) Discharge Diet: Cardiac Discharge Activity: Resume usual activity Patient Instructions: Cefuroxime (By mouth), Clonidine (By mouth), Levothyroxine (By mouth), Losartan (By mouth), Atorvastatin (By mouth), Carotid Artery Disease (DC), Dizziness (GEN), Fall Prevention (DC) Activity Restrictions/Additional Instructions: Leg citrate as needed for the constipation. Increase your clonidine to 1 pill twice a day follow-up with your primary care provider within the next week. -If you have severe dizzyness episodes, that are not improving come back to the emergency room Discharge Attestations Time Spent in Discharge Care*: less than 30 min Quality Metrics Clinical Quality Measures During this hospital stay, did patient experience: None Coding Level of Care Code Acute Digital Computer Systems Analyst for Chg Fwd Diagnoses CHF (congestive heart failure) I50.9 Heart failure type: unspecified Heart failure chronicity: chronic CAD (coronary artery disease) I25.810 Coronary Disease-Associated Artery/Lesion type: bypass graft [place] vs. transplanted heart: [place] heart Associated angina: without angina Hypertension I10 Hypertension type: essential hypertension Abdominal pain R10.13 Abdominal location: epigastric Elevated troponin R77.8 Dizziness R42
--- NOTE | 2020-04-19 13:45 | PC.NURSE ---
Discharge instructions given per the physician's orders. Patient verbalized understanding of discharge teaching and did not have any further questions. Patient transferred to heart care services for cardiac event monitor placement. Patient's daughter, Ruby is to be there for transportation home.
== END 2020-04-19 14:15 | disposition home or self-care (01) | DRG 392 ==
LOC: ER 15:08 → ICU 16:01 → CSU 16:15
PROVIDERS: Admitting Provider Hospitalist; Emergency Provider Family Medicine; Visit Provider Family Medicine
DX: K59.00 Constipation, unspecified (principal); I45.89 Other specified conduction disorders; I25.810 Atherosclerosis of coronary artery bypass graft(s) without angina pectoris; I44.7 Left bundle-branch block, unspecified; R42 Dizziness and giddiness; Z95.1 Presence of aortocoronary bypass graft; G30.9 Alzheimer's disease, unspecified; F02.80 Dementia in other diseases classified elsewhere, unspecified severity, without behavioral disturbance, psychotic disturbance, mood disturbance, and anxiety; I50.9 Heart failure, unspecified; I11.0 Hypertensive heart disease with heart failure; E11.9 Type 2 diabetes mellitus without complications; E78.5 Hyperlipidemia, unspecified; E03.9 Hypothyroidism, unspecified; F20.9 Schizophrenia, unspecified; Z87.891 Personal history of nicotine dependence; I65.23 Occlusion and stenosis of bilateral carotid arteries; E86.0 Dehydration; Z79.84 Long term (current) use of oral hypoglycemic drugs; Z79.82 Long term (current) use of aspirin; I35.1 Nonrheumatic aortic (valve) insufficiency; Z86.73 Personal history of transient ischemic attack (TIA), and cerebral infarction without residual deficits
CPT/HCPCS: 12345; 36415; 36416; 70450; 70496; 70498; 71045; 74177; 80053; 81001; 82962; 83690; 83735; 84100; 84439; 84443; 84484; 85025; 87077; 87086; 87186; 93005; 93306; 93880; 96372; 96375; 97110; 97116; 97162; 97165; 99282; C9113; G0378; J0360; J0696; J1650; J1815; J2270; J2405; Q0162; Q9967